=== PATIENT | female | born 1930 | race American Indian/Alaskan Native ===

== ENCOUNTER 2018-12-21 18:57 | Inpatient (IN) | payer MEDICAID ==
--- NOTE | 2018-12-21 20:27 | ED PDOC ---
HPI: General Adult Time Seen by Provider: 12/21/18 19:20 Chief Complaint (Nursing): Medical Clearance Chief Complaint (Provider): Medical Clearance History Per: Patient, Family History/Exam Limitations: clinical condition (short term memory in decline) Onset/Duration Of Symptoms: Hrs Additional Complaint(s): García CALL [id number] 88 year old female with history of DM, HTN, heart problem brought to ED because she was found wandering in the rain in [place]. Her chief complaint is that her body is wet but denies any other pain. Family visited patient in the middle of physical exam. They note that patient usually attends buddhism on Friday mornings at 7 AM by bus. She lives with her son in [place] but she may have missed a stop today and gotten lost. The family reports that this has never happened to the patient before although they admit her short term memory is progressively declining otherwise she has no other history of dementia. She is in good health recently. PMD: patient does not remember Past Medical History Reviewed: Historical Data, Nursing Documentation, Vital Signs Vital Signs: Last Vital Signs Temp 97.8 F 12/21/18 19:00 Pulse 95 H 12/21/18 19:00 Resp 16 12/21/18 19:00 BP 161/83 H 12/21/18 19:00 Pulse Ox 99 12/21/18 19:00 Primary Care Provider: FAMILY PROVIDER,NO - Medical History PMH: Diabetes, HTN - Surgical History Surgical History: No Surg Hx - Family History Family History: States: No Known Family Hx - Living Arrangements Living Arrangements: With Family (son) - Social History Current smoker - smoking cessation education provided: No Alcohol: None Drugs: Denies - Immunization History Hx Tetanus Toxoid Vaccination: No Hx Influenza Vaccination: No Hx Pneumococcal Vaccination: No - Home Medications Home Medications: Ambulatory Orders Medication Instructions Recorded Unobtainable 12/22/18 - Allergies Allergies/Adverse Reactions: Allergies Allergy/AdvReac Type Severity Reaction Status Date / Time No Known Allergies Allergy Verified 12/21/18 19:00 Review of Systems ROS Statement: Except As Marked, All Systems Reviewed And Found Negative Constitutional: Positive for: Other (wet body) Physical Exam - Reviewed Nursing Documentation Reviewed: Yes Vital Signs Reviewed: Yes - Physical Exam Appears: Positive for: No Acute Distress Head Exam: Positive for: ATRAUMATIC, NORMOCEPHALIC Skin: Positive for: Normal Color, Warm Eye Exam: Positive for: EOMI, Normal appearance, PERRL ENT: Positive for: Normal ENT Inspection Neck: Positive for: Normal, Supple Cardiovascular/Chest: Positive for: Regular Rate, Rhythm. Negative for: Murmur Respiratory: Positive for: Normal Breath Sounds. Negative for: Respiratory Distress Gastrointestinal/Abdominal: Positive for: Normal Exam, Soft. Negative for: Tenderness Back: Positive for: Normal Inspection. Negative for: L CVA Tenderness, R CVA Tenderness, Vertebral Tenderness Extremity: Positive for: Normal ROM. Negative for: Pedal Edema, Deformity Neurological/Psych: Positive for: Awake, Alert, Oriented (x2, not to time), calender wind up helper II-XII. Negative for: Facial Droop - Laboratory Results Result Diagrams: 12/21/18 20:48 12/21/18 20:48 - ECG O2 Sat by Pulse Oximetry: 99 (RA) Pulse Ox Interpretation: Normal Medical Decision Making Medical Decision Making: Time: 2009 Initial Impression: confusion/altered mental status Ddx: rule out hypothermia, electrolyte imbalance, infection, neurological process, psychiatric evaluation Family is aware of the plan Initial Plan: --CT Head --Labs (CMP, CBC) --Crisis Evaluation --Urinalysis 2020 Son arrived and is hesitant to do workup for patient since he is tired after a long day and would rather take the patient home. I explained the need for workup to rule out infection and any other electrolyte abnormality. he finally agreed. 2309 CT Head FINDINGS: BRAIN: No acute intraparenchymal hemorrhage. No mass lesion. No CT evidence for acute territorial infarct. No midline shift or extra-axial collections. There is moderate age-appropriate diffuse cerebral and cerebellar atrophy noted. There are bilateral confluent periventricular and subcortical white matter hypolucencies compatible with severe chronic microvascular disease. A small old lacunar infarction measuring 4.7 mm is seen in the left basal ganglia. VENTRICLES: No hydrocephalus. VASCULAR: Atherosclerotic vascular plaquing is noted within the carotid siphons bilaterally. ORBITS: The orbits are unremarkable. SINUSES AND MASTOIDS: Mucoperiosteal thickening is scattered within the ethmoid sinuses bilaterally and within the frontal sinuses bilaterally compatible with sinusitis. The remaining visualized paranasal sinuses and mastoid air cells are clear. BONES: No fracture. SOFT TISSUES: Unremarkable. IMPRESSION: 1. No acute intracranial abnormality. 2. Moderate age-appropriate diffuse cerebral and cerebellar atrophy. 3. Severe chronic microvascular disease. 4. Small old lacunar infarction in the left basal ganglia noted. 5. Atherosclerotic vascular plaquing seen within the carotid siphons bilaterally. 2340 Patient seen and evaluated by crisis team in the ER , state there is no psychiatric component to patient's presentation 0034 UA reviewed, no sign of UTI Creatinine appears to be indicative of worsening renal function Patient to be admitted due to worsening renal function, and leukocytosis Case discussed with Dr. Bhagat, who accepts patient for admission. Care transferred to Dr. Bhagat at this time. 0124 CXR FINDINGS: LUNGS: The lungs appear within normal limits. PLEURAL SPACES: No evidence of pleural effusion or pneumothorax. MEDIASTINUM: The heart is mildly enlarged. Tortuous ectatic atherosclerotic thoracic aorta is noted. BONES: No acute osseous abnormality. MISCELLANEOUS: No acute cardiopulmonary abnormality identified. IMPRESSION: 1. The heart is mildly enlarged. 2. Tortuous ectatic atherosclerotic thoracic aorta is noted. 3. No acute cardiopulmonary abnormality identified. pt stable for admission to the hospital. noted labs with worsening renal insufficiency as well as leukocytosis. pt will stay on a 1-1 for elopment risk. discussed the need for this with the son. he said he would come to the ER again but he never came. Scribe Attestation: Documented by Cameron Irvin acting as a scribe for Eva Israel MD. Provider Scribe Attestation: All medical record entries made by the Scribe were at my direction and personally dictated by me. I have reviewed the chart and agree that the record accurately reflects my personal performance of the history, physical exam, [facility] decision making, and the department course for this patient. I have also personally directed, reviewed, and agree with the discharge instructions and disposition. Disposition - Clinical Impression Clinical Impression: Altered mental status, Renal insufficiency - Patient ED Disposition Is Patient to be Admitted: Yes Counseled Patient/Family Regarding: Studies Performed, Diagnosis - Disposition Disposition Time: 22:00 Condition: STABLE
[2018-12-21 20:55] LABS: BASO % 0.2 % (0.0-2.0); EOS % 0.1 % (0.0-4.0); LYMPH # 0.6 K/uL (1.0-4.3); LYMPH % 3.8 % (20.0-40.0); MEAN CELL VOLUME 93.6 fl (81.0-99.0); MEAN CORPUSCULAR HEMOGLOBIN 30.3 pg (27.0-31.0); MEAN CORPUSCULAR HGB CONC 32.3 g/dL (33.0-37.0); MEAN PLATELET VOLUME 9.9 fl (7.2-11.7); MONO # 0.7 K/uL (0.0-0.8); MONO % 4.7 % (0.0-10.0); NEUT # 13.1 K/uL (1.8-7.0); NEUT % 91.2 % (50.0-75.0); PLATELET COUNT 123 K/uL (130-400); RBC 3.95 Mil/uL (3.80-5.20); RED CELL DISTRIBUTION WIDTH 14.6 % (11.5-14.5); WHITE BLOOD COUNT 14.4 K/uL (4.8-10.8)
[2018-12-21 21:05] LABS: ALB/GLOB RATIO 1.4 (1.0-2.1); ALBUMIN 4.5 g/dL (3.5-5.0); ALT/SGPT 24 U/L (9-52); AST/SGOT 62 U/L (14-36); BLOOD UREA NITROGEN 33 mg/dl (7-17); CALCIUM 9.8 mg/dL (8.4-10.2); GFR NON-AFRICAN AMERICAN 39
[2018-12-21 21:20] LABS: ACETAMINOPHEN < 10.0 ug/ml (10.0-30.0); SALICYLATE < 1.0 mg/dl
[2018-12-21] MEDS ORDERED: Sodium Chloride 0.9% 1,000 ML IV STA (21:45)
[2018-12-21 22:27] LABS: BANDS 1 % (0-2); LYMPHOCYTE 4 % (20-50); MONOCYTE 6 % (0-10); NEUTROPHIL 89 % (42-75); TOTAL CELLS COUNTED 100
[2018-12-21 22:28] LABS: PLATELET ESTIMATE DECREASED (NORMAL)
[2018-12-22 00:10] LABS: SQUAMOUS EPITHIAL < 1 /hpf (0-5); URINE BILIRUBIN NEGATIVE (NEGATIVE); URINE BLOOD MODERATE (NEGATIVE); URINE CLARITY CLEAR (Clear); URINE COLOR YELLOW (YELLOW); URINE GLUCOSE (UA) NEG (NEGATIVE); URINE LEUKOCYTE ESTERASE NEG Leu/uL (Negative); URINE PROTEIN 100 mg/dL (NEGATIVE); URINE UROBILINOGEN 0.2-1.0 mg/dL (0.2-1.0)
[2018-12-22 00:26] LABS: BARBITURATES, UR NEGATIVE (NEGATIVE); BENZODIAZEPINES, UR NEGATIVE (NEGATIVE); OPIATES, UR NEGATIVE (NEGATIVE); PHENCYCLIDINE, UR NEGATIVE (NEGATIVE)
[2018-12-22 04:05] VITALS: BMI 22.4
[2018-12-22] MEDS ORDERED: Pneumococcal 23-Valent Vaccine IM ONE (06:00)
[2018-12-22] MEDS: Sodium Chloride 0.9% 1,000 ML IV SCH ×3 (06:29→22:19)
--- NOTE | 2018-12-22 08:02 | CP.PCM.CON ---
History of Present Illness - History of Present Illness History of Present Illness: Psychiatry consult called for "history of wandering." Cre[employer] Unit Aide Tech [id number] used to communicate with the patient CC: "I'm fine." HPI: 88 yo female w/ h/o DM, HTN, CAD, found wandering in the rain in [place]. Patient is a poor historian and unable to explain why she is in the hospital. She is oriented to self and "hospital", does not know the date or which hospital. She denies acute depression/anxiety/AH/VH/paranoia/SI/HI. No acute psychiatric complaints. Impression: 88 yo female, likely has major neurocognitive disorder; no acute psychiatric complaints. -No psychiatric medications or admission indicated -Recommend outpatient neurology evaluation and treatment of neurocognitive impairment Past Patient History - Past Medical History & Family History Past Medical History?: Yes - Past Social History Alcohol: None Drugs: Denies - CARDIAC Hx Hypertension: Yes - PULMONARY Hx Tuberculosis: No - NEUROLOGICAL HX Cerebrovascular Accident: No Hx Seizures: No - HEENT Hx HEENT Problems: No - RENAL Hx Chronic Kidney Disease: No - ENDOCRINE/METABOLIC Hx Endocrine Disorders: No - HEMATOLOGICAL/ONCOLOGICAL Hx Cancer: No Hx Human Immunodeficiency Virus (HIV): No - INTEGUMENTARY Hx Dermatological Problems: No - MUSCULOSKELETAL/RHEUMATOLOGICAL Hx Musculoskeletal Disorders: Yes Hx Falls: Yes - GASTROINTESTINAL Hx Gastrointestinal Disorders: No - GENITOURINARY/GYNECOLOGICAL Hx Sexually Transmitted Disorders: No - PSYCHIATRIC Hx Psychophysiologic Disorder: No Hx Substance Use: No - SURGICAL HISTORY Hx Surgeries: No - ANESTHESIA Hx Anesthesia: No Hx Anesthesia Reactions: No Hx Malignant Hyperthermia: No Meds Allergies/Adverse Reactions: Allergies Allergy/AdvReac Type Severity Reaction Status Date / Time No Known Allergies Allergy Verified 12/21/18 19:00 - Medications Medications: Current Medications Acetaminophen (Tylenol 325mg Tab) 650 mg PO Q6 PRN PRN Reason: Pain, Mild (1-3) Sodium Chloride (Sodium Chloride 0.9%) 1,000 mls @ 100 mls/hr IV .Q10H RADHA Stop: 12/23/18 06:06 Last Admin: 12/22/18 06:29 Dose: 100 mls/hr Results - Vital Signs Recent Vital Signs: Last Vital Signs Temp 98.1 F 12/22/18 08:00 Pulse 75 12/22/18 08:00 Resp 18 12/22/18 08:00 BP 126/80 12/22/18 08:00 Pulse Ox 99 12/22/18 08:00 - Labs Result Diagrams: 12/22/18 10:40 12/22/18 10:40 Labs: Laboratory Results - last 24 hr 12/21/18 12/21/18 12/21/18 20:44 20:48 20:48 WBC RBC Hgb Hct MCV MCH MCHC RDW Plt Count MPV Neut % (Auto) Lymph % (Auto) [place] % (Auto) Eos % (Auto) Baso % (Auto) Neut # (Auto) Lymph # (Auto) [place] # (Auto) Eos # (Auto) Baso # (Auto) Neutrophils % (Manual) Band Neutrophils % Lymphocytes % (Manual) Monocytes % (Manual) Platelet Estimate RBC Morphology Sodium 139 Potassium 4.6 Chloride 102 Carbon Dioxide 23 Anion Gap 19 BUN 33 H Creatinine 1.3 H Est GFR ( Amer) 47 Est GFR (Non-Af Amer) 39 POC Glucose (mg/dL) 98 Random Glucose 101 Calcium 9.8 Total Bilirubin 0.9 AST 62 H ALT 24 Alkaline Phosphatase 74 Total Protein 7.8 Albumin 4.5 Globulin 3.3 Albumin/Globulin Ratio 1.4 Urine Color Urine Clarity Urine pH Ur Specific [place] Urine Protein Urine Glucose (UA) Urine Ketones Urine Blood Urine Nitrate Urine Bilirubin Urine Urobilinogen Ur Leukocyte Esterase Urine RBC (Auto) Urine Microscopic WBC Ur Squamous Epith Cells Salicylates < 1.0 Urine Opiates Screen Urine Methadone Screen Acetaminophen < 10.0 L Ur Barbiturates Screen Ur Phencyclidine Scrn Ur Amphetamines Screen U Benzodiazepines Scrn U Oth Cocaine Metabols U Cannabinoids Screen Alcohol, Quantitative < 10 12/21/18 12/21/18 12/21/18 20:48 23:55 23:55 WBC 14.4 H RBC 3.95 Hgb 12.0 Hct 37.0 MCV 93.6 MCH 30.3 MCHC 32.3 L RDW 14.6 H Plt Count 123 L MPV 9.9 Neut % (Auto) 91.2 H Lymph % (Auto) 3.8 L [place] % (Auto) 4.7 Eos % (Auto) 0.1 Baso % (Auto) 0.2 Neut # (Auto) 13.1 H Lymph # (Auto) 0.6 L [place] # (Auto) 0.7 Eos # (Auto) 0.0 Baso # (Auto) 0.0 Neutrophils % (Manual) 89 H Band Neutrophils % 1 Lymphocytes % (Manual) 4 L Monocytes % (Manual) 6 Platelet Estimate Decreased L RBC Morphology Normal Sodium Potassium Chloride Carbon Dioxide Anion Gap BUN Creatinine Est GFR ( Amer) Est GFR (Non-Af Amer) POC Glucose (mg/dL) Random Glucose Calcium Total Bilirubin AST ALT Alkaline Phosphatase Total Protein Albumin Globulin Albumin/Globulin Ratio Urine Color Yellow Urine Clarity Clear Urine pH 6.0 Ur Specific [place] 1.016 Urine Protein 100 Urine Glucose (UA) Neg Urine Ketones 20 Urine Blood Moderate Urine Nitrate Negative Urine Bilirubin Negative Urine Urobilinogen 0.2-1.0 Ur Leukocyte Esterase Neg Urine RBC (Auto) 1 Urine Microscopic WBC 1 Ur Squamous Epith Cells < 1 Salicylates Urine Opiates Screen Negative Urine Methadone Screen Negative Acetaminophen Ur Barbiturates Screen Negative Ur Phencyclidine Scrn Negative Ur Amphetamines Screen Negative U Benzodiazepines Scrn Negative U Oth Cocaine Metabols Negative U Cannabinoids Screen Negative Alcohol, Quantitative 12/22/18 05:31 WBC RBC Hgb Hct MCV MCH MCHC RDW Plt Count MPV Neut % (Auto) Lymph % (Auto) [place] % (Auto) Eos % (Auto) Baso % (Auto) Neut # (Auto) Lymph # (Auto) [place] # (Auto) Eos # (Auto) Baso # (Auto) Neutrophils % (Manual) Band Neutrophils % Lymphocytes % (Manual) Monocytes % (Manual) Platelet Estimate RBC Morphology Sodium Potassium Chloride Carbon Dioxide Anion Gap BUN Creatinine Est GFR ( Amer) Est GFR (Non-Af Amer) POC Glucose (mg/dL) 95 Random Glucose Calcium Total Bilirubin AST ALT Alkaline Phosphatase Total Protein Albumin Globulin Albumin/Globulin Ratio Urine Color Urine Clarity Urine pH Ur Specific [place] Urine Protein Urine Glucose (UA) Urine Ketones Urine Blood Urine Nitrate Urine Bilirubin Urine Urobilinogen Ur Leukocyte Esterase Urine RBC (Auto) Urine Microscopic WBC Ur Squamous Epith Cells Salicylates Urine Opiates Screen Urine Methadone Screen Acetaminophen Ur Barbiturates Screen Ur Phencyclidine Scrn Ur Amphetamines Screen U Benzodiazepines Scrn U Oth Cocaine Metabols U Cannabinoids Screen Alcohol, Quantitative
--- NOTE | 2018-12-22 08:19 | RAD ---
Date of service: 12/21/2018 HISTORY: elevated wbc COMPARISON: No prior. TECHNIQUE: 1 view obtained. FINDINGS: LUNGS: No active pulmonary disease. PLEURA: No significant pleural effusion identified, no pneumothorax apparent. CARDIOVASCULAR: Calcific atherosclerotic changes are seen related to the thoracic aorta. Prominent appearing cardiac silhouette. No pulmonary vascular congestion. OSSEOUS STRUCTURES: No significant abnormalities. VISUALIZED UPPER ABDOMEN: Normal. OTHER FINDINGS: None. IMPRESSION: Mild cardiomegaly not excluded. No infiltrates bilaterally or pulmonary vascular congestion.
--- NOTE | 2018-12-22 10:09 | CARD ---
APPROVED REPORT Date of service: 12/22/2018 EKG Measurement Heart [id number] <Conclusion> Normal sinus rhythm Voltage criteria for left ventricular hypertrophy Inferior infarct, age undetermined Abnormal ECG
--- NOTE | 2018-12-22 10:28 | US ---
Date of service: 12/22/2018 PROCEDURE: Ultrasound of the Kidneys HISTORY: worsening renal function COMPARISON: None available. TECHNIQUE: Sonogram of the kidneys. FINDINGS: RIGHT KIDNEY: Measures: 7.3 x 4.0 x 2.7 cm. No obstructing calculus, hydronephrosis, or renal cyst identified. Echogenic renal parenchyma. LEFT KIDNEY: Measures: 7.0 x 3.6 x 3.4 cm. No obstructing calculus, hydronephrosis, or renal cyst identified. Echogenic renal parenchyma. OTHER FINDINGS: None. IMPRESSION: Echogenic renal parenchyma may be seen in the setting of medical renal disease.
[2018-12-22 10:56] LABS: HEMOGLOBIN 10.7 g/dL (12.0-16.0); MEAN CELL VOLUME 93.9 fl (81.0-99.0); MEAN CORPUSCULAR HEMOGLOBIN 30.5 pg (27.0-31.0); MEAN CORPUSCULAR HGB CONC 32.5 g/dL (33.0-37.0); RBC 3.5 Mil/uL (3.80-5.20); RED CELL DISTRIBUTION WIDTH 14.5 % (11.5-14.5); WHITE BLOOD COUNT 11.4 K/uL (4.8-10.8)
[2018-12-22 11:18] LABS: ALB/GLOB RATIO 1.3 (1.0-2.1); ALBUMIN 3.8 g/dL (3.5-5.0); CALCIUM 8.8 mg/dL (8.4-10.2)
--- NOTE | 2018-12-22 12:16 | CT ---
Date of service: 12/21/2018 PROCEDURE: CT HEAD WITHOUT CONTRAST. HISTORY: Confusion and hypothermia COMPARISON: None available. TECHNIQUE: Axial computed tomography images were obtained through the head/brain without intravenous contrast. Supplemental Coronal and Sagittal projections created and reviewed. Radiation dose: Total exam DLP = 777.90 mGy-cm. This CT exam was performed using one or more of the following dose reduction techniques: Automated exposure control, adjustment of the mA and/or kV according to patient size, and/or use of iterative reconstruction technique. FINDINGS: HEMORRHAGE: No intracranial hemorrhage. BRAIN: No mass effect or edema. Cortical atrophy and chronic microvascular ischemic change. VENTRICLES: Unremarkable. No hydrocephalus. CALVARIUM: Unremarkable. PARANASAL SINUSES: Unremarkable as visualized. No significant inflammatory changes. MASTOID AIR CELLS: Unremarkable as visualized. No inflammatory changes. OTHER FINDINGS: None. IMPRESSION: No acute findings related to/ accounting for the clinical presentation. Concordant results (preliminary interpretation) provided by [facility]. Procedure Completed: 22:27. Preliminary Report: Interpreted and electronically signed: 23:10. Final Interpretation: 12:12.
--- NOTE | 2018-12-23 04:18 | HP ---
HISTORY OF PRESENT ILLNESS: This is an 88-year-old Indian female with history of type 2 diabetes mellitus, hypertension and heart problem was brought to emergency room because she was found wandering in the rain in the street. Her chief complaint is that her body was wet, but denies any other pain. Family visited the patient in the emergency room. They note that the patient usually attends latter-day on Friday morning at 7 o'clock by bus. The patient lives with her son in [place] and it was not clear if the patient missed a bus stop and got lost. The family reports that this never happened before and also, they admitted that her memory has been progressively declining lately. REVIEW OF SYSTEMS: Other review of systems is negative. ALLERGIES: NO KNOWN ALLERGY. MEDICATIONS: Unknown at this time. PAST MEDICAL HISTORY: As above. SOCIAL HISTORY: No history of smoking, ETOH or substance abuse. FAMILY HISTORY: Noncontributory. PHYSICAL EXAMINATION: GENERAL: The patient is in bed, not in any cardiopulmonary distress. VITAL SIGNS: Blood pressure 138/68, temperature 96.9, respiratory rate 20 and pulse 75. HEENT: Pupils equal and reactive to light. Normal-appearing mucosa of the conjunctivae, oropharynx and nasal membrane mucosa. NECK: Supple. No JVD. No carotid bruit. No lymph node. No thyromegaly. CHEST AND LUNGS: Bilateral symmetrical expansion. Good air exchange. No rales and no rhonchi. CARDIOPULMONARY: PMI not localized. S1 and S2. No additional sounds. ABDOMEN: Normoactive bowel sounds. No tenderness, no organomegaly, no masses. EXTREMITIES: No cyanosis, no clubbing, no edema. CENTRAL NERVOUS SYSTEM: Alert and awake, but disoriented to place and time. ASSESSMENT: 1. Dementia. 2. Hypertension. 3. Type 2 diabetes mellitus. 4. Dehydration. PLAN: Discussed with the family regarding further management. Social Service consult. We will resume the patient's home medications. We will do Accu-Cheks with insulin coverage as needed. Physical therapy. Luis F Bhagat MD
[2018-12-23] MEDS: Sodium Chloride 0.9% 1,000 ML IV SCH (05:25)
[2018-12-23 10:38] LABS: CALCIUM 8.6 mg/dL (8.4-10.2)
[2018-12-23 10:41] LABS: HEMOGLOBIN 10.2 g/dL (12.0-16.0); MEAN CELL VOLUME 94.4 fl (81.0-99.0); MEAN CORPUSCULAR HGB CONC 32.9 g/dL (33.0-37.0); RBC 3.27 Mil/uL (3.80-5.20); RED CELL DISTRIBUTION WIDTH 14.7 % (11.5-14.5); WHITE BLOOD COUNT 7.9 K/uL (4.8-10.8)
--- NOTE | 2018-12-23 14:41 | CT ---
Date of service: 12/23/2018 PROCEDURE: CT HEAD WITHOUT CONTRAST. HISTORY: Change in mental status COMPARISON: 01/07/2019 TECHNIQUE: Axial computed tomography images were obtained through the head/brain without intravenous contrast. Radiation dose: Total exam DLP = 784.53 mGy-cm. This CT exam was performed using one or more of the following dose reduction techniques: Automated exposure control, adjustment of the mA and/or kV according to patient size, and/or use of iterative reconstruction technique. FINDINGS: HEMORRHAGE: No intracranial hemorrhage. BRAIN: There is redemonstration of symmetric confluent low-attenuation in the periventricular white matter extending to the subcortical white matter. There is no mass, mass effect or abnormal extra-axial fluid collection. There is no territorial infarction. The midline sagittal structures are normal. VENTRICLES: There is moderate age-related global parenchymal volume loss and proportionate enlargement of the ventricles and cortical sulci. CALVARIUM: There is no calvarial fracture or extracranial soft tissue swelling. PARANASAL SINUSES: There is moderate mucosal thickening and fluid in the left anterior and posterior ethmoid air cells. MASTOID AIR CELLS: Mastoid air cells are underdeveloped. OTHER FINDINGS: None. IMPRESSION: 1. No acute intracranial abnormality. No significant interval change. 2. Redemonstration of extensive periventricular and subcortical white matter changes statistically most compatible with severe chronic microangiopathic changes. The other differential considerations include demyelination and dysmyelination. 3. Moderate age-related global parenchymal volume loss. 4. Fluid in the left anterior and posterior ethmoid air cells may represent acute sinusitis in the appropriate clinical setting.
--- NOTE | 2018-12-23 15:41 | CP.PCM.CON ---
History of Present Illness - History of Present Illness History of Present Illness: Neurology Consultation Note: Consult requested by Dr. Bhagat Mrs. Jovel is an 88-year-old woman with unknown past medical history, who was found wandering around in the rain a few days ago. She appeared to be disoriented and confused. She was evaluated by psychiatry as well and did not seem to have an acute psychiatric illness. PT evaluated the patient and noted bilateral lower extremity weakness. I ordered MRI of the thoracic and lumbar spine to rule out spinal pathology and there was no evidence of cord compression. Review of Systems - Review of Systems Systems not reviewed;Unavailable: Altered Mental Status Past Patient History - Past Medical History & Family History Past Medical History?: Yes - Past Social History Alcohol: None Drugs: Denies - CARDIAC Hx Hypertension: Yes - PULMONARY Hx Tuberculosis: No - NEUROLOGICAL HX Cerebrovascular Accident: No Hx Seizures: No - HEENT Hx HEENT Problems: No - RENAL Hx Chronic Kidney Disease: No - ENDOCRINE/METABOLIC Hx Endocrine Disorders: No - HEMATOLOGICAL/ONCOLOGICAL Hx Cancer: No Hx Human Immunodeficiency Virus (HIV): No - INTEGUMENTARY Hx Dermatological Problems: No - MUSCULOSKELETAL/RHEUMATOLOGICAL Hx Musculoskeletal Disorders: Yes Hx Falls: Yes - GASTROINTESTINAL Hx Gastrointestinal Disorders: No - GENITOURINARY/GYNECOLOGICAL Hx Sexually Transmitted Disorders: No - PSYCHIATRIC Hx Psychophysiologic Disorder: No Hx Substance Use: No - SURGICAL HISTORY Hx Surgeries: No - ANESTHESIA Hx Anesthesia: No Hx Anesthesia Reactions: No Hx Malignant Hyperthermia: No Meds Allergies/Adverse Reactions: Allergies Allergy/AdvReac Type Severity Reaction Status Date / Time No Known Allergies Allergy Verified 12/21/18 19:00 - Medications Medications: Current Medications Acetaminophen (Tylenol 325mg Tab) 650 mg PO Q6 PRN PRN Reason: Pain, Mild (1-3) Atorvastatin Calcium (Lipitor) 40 mg PO DAILY [facility] Cyproheptadine HCl (Periactin) 4 mg PO DAILY [facility] HCTZ/Losartan Potassium (Hyzaar 12.5 Mg-50 Mg) 1 tab PO DAILY [facility] Heparin Sodium (Porcine) (Heparin) 5,000 units SC Q12 [facility]; Protocol Metoprolol Tartrate (Lopressor) 12.5 mg PO DAILY [facility] Pantoprazole Sodium (Protonix Ec Tab) 40 mg PO DAILY [facility] Physical Exam - Constitutional Appears: Well - Head Exam Head Exam: ATRAUMATIC, NORMAL INSPECTION, NORMOCEPHALIC - Eye Exam Eye Exam: EOMI, Normal appearance, PERRL Pupil Exam: NORMAL ACCOMODATION, PERRL - ENT Exam ENT Exam: Mucous Membranes Moist, Normal Exam - Neck Exam Neck exam: Positive for: Normal Inspection - Respiratory Exam Respiratory Exam: Clear to Auscultation Bilateral, NORMAL BREATHING PATTERN - Cardiovascular Exam Cardiovascular Exam: REGULAR RHYTHM, +S1, +S2 - GI/Abdominal Exam GI & Abdominal Exam: Normal Bowel Sounds, Soft. absent: Tenderness - Extremities Exam Extremities exam: Positive for: normal inspection - Back Exam Back exam: NORMAL INSPECTION - Neurological Exam Neurological exam: Abnormal Gait, Alert, Altered, CN II-XII Intact, Reflexes Normal Additional comments: Generalized weakness more notable in both lower extremities - Psychiatric Exam Psychiatric exam: Normal Affect, Normal Mood - Skin Skin Exam: Dry, Intact, Normal Color, Warm Results - Vital Signs Recent Vital Signs: Last Vital Signs Temp 98.2 F 12/23/18 08:04 Pulse 59 L 12/23/18 08:04 Resp 18 12/23/18 08:04 BP 149/82 12/23/18 08:04 Pulse Ox 97 12/23/18 08:04 - Labs Result Diagrams: 12/23/18 10:00 12/23/18 10:00 Labs: Laboratory Results - last 24 hr 12/22/18 12/23/18 12/23/18 10:40 10:00 10:00 WBC 7.9 RBC 3.27 L Hgb 10.2 L Hct 30.9 L MCV 94.4 MCH 31.0 MCHC 32.9 L RDW 14.7 H Plt Count 95 L D Sodium 139 Potassium 3.8 Chloride 110 H Carbon Dioxide 24 Anion Gap 9 L BUN 24 H Creatinine 1.3 H Est GFR ( Amer) 47 Est GFR (Non-Af Amer) 39 Random Glucose 91 Calcium 8.6 RPR Nonreactive Assessment & Plan (1) Acute encephalopathy Assessment and Plan: The patient could be suffering from an exacerbation of baseline dementia due to either dehydration, renal insufficiency or possibly an infection (WBC was initially elevated). She has generalized weakness and pain in both knees (likely arthritis), and should undergo rehab. In addition I recommend the followin. MRI of the brain without contrast 2. Check serum vitamin D levels, TSH, T3/4, heavy metal screen 3. PT/OT eval and further treatment 4. Fluids with NS at 100 mL/hr Thank you for this consultation. Status: Acute
--- NOTE | 2018-12-23 15:53 | MRI ---
Date of service: 12/23/2018 PROCEDURE: MR LUMBAR SPINE WITHOUT CONTRAST HISTORY: bilateral knee tremors/weakness COMPARISON: None available. TECHNIQUE: Multiecho multiplanar sequences were performed through the lumbar spine without the use of intravenous contrast. FINDINGS: There is degenerative 4 mm anterior listhesis of L4 on L5 and degenerative 5 mm anterior listhesis of L5 on S1. There is exaggerated lumbar lordosis. There is no acute fracture or spondylolysis. There are degenerative endplate marrow changes at L2-3 and lesser extent L5-S1. Otherwise, bone marrow signal is within normal limits. The conus medullaris terminates at a normal level. There is multilevel indentation of the ventral thecal sac and multilevel spinal canal stenosis in the lumbar spine. There is multilevel disc degeneration with loss of T2 signal and reduced disc heights. Evaluation of individual disc levels demonstrate: T12-L1: Diffuse posterior disc bulge without spinal canal stenosis or neural foraminal narrowing. L1-2: Diffuse posterior disc bulge indents the ventral thecal sac without central spinal canal stenosis. Mild bilateral facet arthropathy contribute to moderate neural foraminal narrowing. L2-3: Diffuse posterior disc bulge indents the ventral thecal sac and in conjunction with mild ligamentum flavum infolding result in mild spinal canal stenosis. Moderate bilateral facet arthropathy contribute to severe neural foraminal narrowing. L3-4: Diffuse posterior disc bulge indents the ventral thecal sac and in conjunction with moderate ligamentum flavum infolding result in mild spinal canal stenosis. Also noted is superimposed right foraminal and far lateral disc protrusion which abuts the exiting right L3 nerve root. Moderate bilateral facet arthropathy contribute to severe right and moderate left neural foraminal narrowing. L4-5: Diffuse posterior disc bulge indents the ventral thecal sac and in conjunction with severe ligamentum flavum infolding result in severe spinal canal stenosis. Also noted is superimposed right foraminal and far lateral disc protrusion which likely impinges the exiting right L4 nerve root. Moderate bilateral facet arthropathy contribute to severe right and moderate left neural foraminal narrowing. L5-S1: Diffuse posterior disc bulge indents the ventral thecal sac and in conjunction with moderate ligamentum flavum infolding result in moderate spinal canal stenosis. Moderate right and severe left facet arthropathy contribute to moderate to severe right and severe left neural foraminal narrowing. OTHER FINDINGS: The paraspinous soft tissues are normal. There is a 1.3 x 1.0 cm cyst with presumable internal septation in the upper pole of the left kidney. IMPRESSION: 1. No acute fracture or spondylolysis. 2. Advanced multilevel degenerative disc disease, worse at L4-5 with a diffuse posterior disc bulge and superimposed right foraminal and far lateral disc protrusion which impinges the exiting right L4 nerve root, severe spinal canal stenosis, severe right and moderate left neural foraminal narrowing. 3. Additional comments as described above.
[2018-12-23] MEDS: Pantoprazole 40 mg EC Tab PO SCH (16:02)
--- NOTE | 2018-12-23 16:04 | MRI ---
Date of service: 12/23/2018 PROCEDURE: MR THORACIC SPINE WITHOUT CONTRAST HISTORY: bilateral knee tremors/weakness COMPARISON: None available. TECHNIQUE: Multiecho multiplanar sequences were performed through the thoracic spine without the use of intravenous contrast. FINDINGS: ALIGNMENT: There is normal alignment of the thoracic vertebral bodies. There is normal thoracic kyphosis. VERTEBRA: Vertebral body height are preserved. There is no acute fracture or bone destruction. MARROW: Bone marrow signal is within normal limits. PARASPINAL SOFT TISSUES: The paraspinous soft tissues are normal. CORD: The thoracic cord is normal in contour, caliber and has normal intrinsic signal. DISCS: There is multilevel disc degeneration with loss of T2 signal. The disc heights are maintained. There are mild posterior disc bulges at T10-11 T11-12 and T12-L1 and mild ligamentum flavum infolding at T 10 11 and T11-12 without central spinal canal stenosis. OTHER FINDINGS: None. IMPRESSION: 1. No acute fracture, spinal canal stenosis or cord compression. Normal appearance of the thoracic cord on noncontrast MRI examination. 2. Mild posterior disc bulges and ligamentum flavum infolding in the lower thoracic spine without central spinal canal stenosis or neural foraminal narrowing.
[2018-12-23] MEDS: HCTZ/Losartan 12.5/50 Tab PO SCH (16:26)
--- NOTE | 2018-12-23 22:25 | PQF ---
PROVIDER RESPONSE TEXT: Dehydration REVIEWER QUERY TEXT: Clarification of Clinical Diagnostic Findings Please clarify if there is an additional diagnosis(s) to go along with the following Chemistry labs: BUN:33->35->24 Creatinine:1.3->1.3->1.3 Est GFR( Amer):47->47->.47 Est GFR(Non Af Amer): 39->39->39 OR: Disagree OR: Unable to determine ER: brought to ED because she was found wandering in the rain in [place] - stable for admission to the hospital. noted labs with worsening renal insufficiency as well as leuk ocytosis.pt will stay on a 1-1 for elopment risk. Clin Imp: Altered mental status, Renal insufficiency Admission order: Admitting dx.: Worsening renal function, leukocytosis, dementia H and P: hx. type 2DM , HTN, and heart problem: to ER: found wandering in the rain in the street. H er chief complaint is that her body was wet, The family reports that this never happened before and also, they admitted that her memory has been progressively declining lately. Assessment; 1.Dementia.2.HTN3.Type 2 DM 4.Dehydration. -IVF's The patient's Clinical Indicators include: --- Query created by: Jill Devine on 12/23/2018 12:46 PM Electronically signed by: Luis F Bhagat MD 12/23/2018 10:21 PM
[2018-12-24 05:45] LABS: BASO % 0.3 % (0.0-2.0); EOS # 0.3 K/uL (0.0-0.7); EOS % 4.5 % (0.0-4.0); HEMOGLOBIN 10.5 g/dL (12.0-16.0); LYMPH # 2.1 K/uL (1.0-4.3); LYMPH % 29.3 % (20.0-40.0); MEAN CORPUSCULAR HEMOGLOBIN 30.5 pg (27.0-31.0); MEAN CORPUSCULAR HGB CONC 32.5 g/dL (33.0-37.0); MEAN PLATELET VOLUME 10.1 fl (7.2-11.7); MONO # 0.7 K/uL (0.0-0.8); MONO % 9.6 % (0.0-10.0); NEUT # 4.1 K/uL (1.8-7.0); NEUT % 56.3 % (50.0-75.0); RBC 3.44 Mil/uL (3.80-5.20); RED CELL DISTRIBUTION WIDTH 14.7 % (11.5-14.5); WHITE BLOOD COUNT 7.2 K/uL (4.8-10.8)
[2018-12-24 06:05] LABS: ALB/GLOB RATIO 1.2 (1.0-2.1); ALBUMIN 3.4 g/dL (3.5-5.0); CALCIUM 8.8 mg/dL (8.4-10.2)
[2018-12-24 07:06] LABS: URINE BILIRUBIN NEGATIVE (NEGATIVE); URINE BLOOD NEGATIVE (NEGATIVE); URINE CLARITY CLEAR (Clear); URINE COLOR STRAW (YELLOW); URINE GLUCOSE (UA) NEG (NEGATIVE); URINE LEUKOCYTE ESTERASE NEG Leu/uL (Negative); URINE PROTEIN NEGATIVE (NEGATIVE); URINE UROBILINOGEN 0.2-1.0 mg/dL (0.2-1.0)
[2018-12-24] MEDS: HCTZ/Losartan 12.5/50 Tab PO SCH (08:59)
[2018-12-24] MEDS: Pantoprazole 40 mg EC Tab PO SCH (09:00)
[2018-12-24] MEDS: Sodium Chloride 0.45% 1,000 ML IV SCH ×2 (09:21→21:45)
--- NOTE | 2018-12-24 10:57 | MRI ---
Date of service: 12/24/2018 PROCEDURE: MRI BRAIN WITHOUT CONTRAST HISTORY: AMS COMPARISON: Comparison is made to the previous CT dated 12/23/2018 TECHNIQUE: Multiplanar, multisequence MR images of the brain were obtained without intravenous contrast enhancement. FINDINGS: HEMORRHAGE: None DWI: There is 0.5 centimeter focus of diffusion restriction in the right frontal lobe consistent with acute/subacute lacunar infarct. BRAIN PARENCHYMA: No mass effect or edema. Moderate white matter changes noted likely represent chronic microvascular ischemic disease. Moderate atrophy is also noted. VENTRICLES: Dilated ventricles likely due to central atrophy. The possibility of mild hydrocephalus also should be considered. CRANIUM: Unremarkable. ORBITS: Grossly unremarkable. PARANASAL SINUSES/MASTOIDS: Vjrr-hz-cqzkzdwf sinuses mucosal disease noted. VASCULAR SYSTEM: Skull base flow voids intact. OTHER FINDINGS: None. IMPRESSION: 0.5 centimeter acute/subacute lacunar infarction at the right frontal lobe. Moderate atrophy and moderate to extensive white matter changes likely represent chronic microvascular ischemic disease. Wrpw-ck-fyqbmvsc sinuses mucosal disease.
[2018-12-24 12:30] LABS: T3 0.913 nmol/L (1.49-2.60)
[2018-12-24 12:48] LABS: HDL CHOLESTEROL 57 MG/DL (30-70); LDL CHOLESTEROL 88 mg/dL (0-129)
--- NOTE | 2018-12-24 16:06 | MRI ---
Date of service: 12/24/2018 PROCEDURE: MR Angiography of the neck without contrast HISTORY: acute/subacute infarct; eval for lvo or stenosis COMPARISON: None available. TECHNIQUE: 3D [id number] angiography of the neck was performed. Rotating maximum intensity projection images of the cervical carotid and vertebral arteries were generated. The origins of the common carotid arteries were not visualized, which is a limitation inherent to the non-contrast time of flight technique. FINDINGS: RIGHT CAROTID ARTERIES: Common Carotid Artery: Normal. Carotid Bifurcation: Normal. Internal Carotid Artery:Normal. External Carotid Artery (proximal branches): Normal. LEFT CAROTID ARTERIES: Common Carotid Artery: Normal. Carotid Bifurcation: Normal. Internal Carotid Artery:Normal. External Carotid Artery (proximal branches): Normal. VERTEBRAL ARTERIES: Right Vertebral Artery: Normal. Left Vertebral Artery: Is dominant OTHER FINDINGS: None. IMPRESSION: No MRA evidence of significant stenosis in the visualize common and internal carotid arteries.
--- NOTE | 2018-12-24 16:07 | MRI ---
Date of service: 12/24/2018 PROCEDURE: Magnetic Resonance Angiography Brain HISTORY: acute/subacute infarct; eval for lvo or stenosis COMPARISON: None available. TECHNIQUE: 3D time of flight MR angiography of the intracranial arteries was performed. Rotating maximum intensity projection images were generated. FINDINGS: INTERNAL CAROTID ARTERIES: Diffuse irregularity noted likely due to atherosclerotic disease. The skull base, petrous, cavernous and supraclinoid segments are bilaterally widely patient. ANTERIOR CEREBRAL ARTERIES: Unremarkable. A1 and A2 segments are widely patent. Smaller distal branches unremarkable, as visualized. MIDDLE CEREBRAL ARTERIES: Diffuse irregularities suggestive of atherosclerotic disease M1 and M2 segments are widely patent. Perisylvian branches grossly symmetric. POSTERIOR CIRCULATION: Basilar Artery: Unremarkable. Distal Vertebral Arteries: Unremarkable. Posterior Cerebral Arteries: Unremarkable. Posterior Inferior Cerebellar Arteries: Unremarkable. ANEURYSM/ VASCULAR MALFORMATIONS: None. OTHER FINDINGS: None. IMPRESSION: Diffuse irregularity noted in the distal internal carotid and in the middle cerebral arteries suggestive of atherosclerotic disease. No evidence of critical stenosis or arterial occlusion. Volume loss and dilated ventricles.
--- NOTE | 2018-12-24 18:13 | CARD ---
APPROVED REPORT Date of service: 12/24/2018 EXAM: Two-dimensional and M-mode echocardiogram with Doppler and color Doppler. Other Information Quality : GoodRhythm : NSR INDICATION LV Function:SystolicDiastolic 2D DIMENSIONS IVSd1.44 (0.7-1.1cm)LVDd3.95 (3.9-5.9cm) LVOT Diameter1.69 (1.8-2.4cm)PWd1.04 (0.7-1.1cm) IVSs1.69 (0.8-1.2cm)LVDs2.23 (2.5-4.0cm) FS (%) 43.5 %PWs1.66 (0.8-1.2cm) M-Mode DIMENSIONS Left Atrium (MM)3.78 (2.5-4.0cm)IVSd1.11 (0.7-1.1cm) Aortic Root2.78 (2.2-3.7cm)LVDd4.14 (4.0-5.6cm) Aortic Cusp Exc.1.54 (1.5-2.0cm)PWd1.08 (0.7-1.1cm) IVSs1.85 cmFS (%) 48 % LVDs2.16 (2.0-3.8cm)PWs1.44 cm Aortic Valve AoV Peak Hdxprmly597.6cm/sAoV VTI29.5cmAO Peak GR.15mmHg LVOT Peak Hvdefovy179.3cm/sLVOT VTI15.70cmAO Mean GR.8mmHg AJ (VMAX)0.15yb5GRM (VTI)0.85cm2 Mitral Valve MV E Ohpcregb69.4cm/sMV DECEL [id number] A Itnkeefz80.4cm/s MV LCW73ktY/A ratio1.1MVA (PHT)3.85cm2 TDI Lateral E' Peak V5.46cm/sMedial E' Peak V5.62cm/sE/Lateral E'16.6 E/Medial E'16.1 Tricuspid Valve TR Peak Trdllgzq733qc/sTR Peak Gr.32mmHg LEFT VENTRICLE The left ventricle is normal size. There is mild concentric left ventricular hypertrophy. The left ventricular systolic function is normal. The estimated ejection fraction is 60-65% No regional wall motion abnormalities noted.. Transmitral Doppler flow pattern is Grade I-abnormal relaxation pattern. No left ventricle thrombus noted on this study. There is no ventricular septal defect visualized. There is no left ventricular aneurysm. There is no mass noted in the left ventricle. RIGHT VENTRICLE The right ventricle is normal size. There is normal right ventricular wall thickness. The right ventricular systolic function is normal. ATRIA The left atrium is mildly dilated. The right atrium size is normal. The interatrial septum is intact with no evidence for an atrial septal defect. AORTIC VALVE The aortic valve is normal in structure. No aortic regurgitation is present. There is no aortic valvular stenosis. There is no aortic valvular vegetation. MITRAL VALVE The mitral valve is normal in structure. There is no evidence of mitral valve prolapse. There is no mitral valve stenosis. There is mild mitral valve regurgitation noted. TRICUSPID VALVE The tricuspid valve is normal in structure. There is mild tricuspid valve regurgitation noted. RVSP is calculated at 38 mm Hg. There is no tricuspid valve prolapse or vegetation. There is no tricuspid valve stenosis. PULMONIC VALVE The pulmonary valve is normal in structure. There is no pulmonic valvular regurgitation. There is no pulmonic valvular stenosis. GREAT VESSELS The aortic root is normal in size. The ascending aorta is normal in size. The pulmonary artery is normal. The IVC is normal in size and collapses >50% with inspiration. PERICARDIAL EFFUSION There is no pericardial effusion. There is no pleural effusion. <Conclusion> There is mild concentric left ventricular hypertrophy. The estimated ejection fraction is 60-65% Global peak strain is -16/ within normal limits. Transmitral Doppler flow pattern is Grade I-abnormal relaxation pattern. The left atrium is mildly dilated. There is mild mitral valve regurgitation noted. There is mild tricuspid valve regurgitation noted. RVSP is calculated at 38 mm Hg.
[2018-12-25 08:08] VITALS: RESP 20
--- NOTE | 2018-12-25 08:38 | PN ---
DATE: 12/23/2018 SUBJECTIVE: I was called this morning by the nurse practitioner and also by the son because the patient was previous Et[employer] user and a former patient of mine for many years who was found lying in the street. The patient stated to me that she was in the bus going [place] [employer] when the pants busheler and the patient ended up in the street walking not knowing where she is and the patient was found by the police and brought to the hospital and the son immediately was alerted and immediately the son came to see the patient. As of today, alert, awake and oriented straight catheter. She has as she was lost and denied any fall, denies any dizziness, was unable to recognize the area where she was, and now the patient stated that she is somewhat little longer, but still does not have full strength. PHYSICAL EXAMINATION: VITAL SIGNS: Blood pressure is 152/79, pulse 75, respirations 20, temperature 98. NECK: Supple. No JVD. LUNGS: Clear. HEART: Regular rate and rhythm. Positive murmur. ABDOMEN: Soft, nontender. No palpable mass. EXTREMITIES: There is no edema. CENTRAL NERVOUS SYSTEM: The patient is alert and awake, but weak. LABORATORY DATA: Labs that were done has shown that WBC 14.4, hemoglobin 12, hematocrit 37, and platelets 123. Chemistry at that time was sodium 139, potassium 4.6, chloride 102, bicarb 22, BUN 33, creatinine 1.3, and glucose 106. Again BUN is 24, creatinine 1.3. CBC today showed a WBC 11.5, hemoglobin 12, hematocrit 30.5, and platelet 97. IMPRESSION: 1. Uncontrolled hypertension. 2. Acute renal failure, chronic kidney disease. 3. Diabetes. 4. Dehydration. 5. Dementia. 6. Arthritis. 7. Gait dysfunction. PLAN: So, the patient now is getting physical therapy and IV fluid was given the patient was not aware and the consult was done by Dr. Prosper Kline. The patient had shortness of breath but stat MRI , no acute or osteomyelitis, but at L4-L5. So, the plan is that he is going to continue the current treatment and also going to continue physical therapy and so rehab. The case was discussed with the son earlier . Blas Swanson MD
--- NOTE | 2018-12-25 08:42 | PN ---
DATE: 12/24/2018 SUBJECTIVE: Today, the patient was seen and evaluated. The patient is alert and awake, denies any dizziness. No chest pain. No palpitations. The patient claimed of feeling better, little stronger and denies constipation. PHYSICAL EXAMINATION: VITAL SIGNS: Has a blood pressure of 162/80, pulse 72, respirations 20, temperature 98.8. HEENT: The head is normocephalic, atraumatic. LUNGS: Clear. HEART: Regular rate and rhythm. No extra beat noted. ABDOMEN: Soft, nontender. EXTREMITIES: There is no edema, though there is some unsteady gait. NEUROLOGIC: The patient is alert, awake, and oriented x3. Denies any weakness at this time. LABORATORY DATA: WBC 7.2, hemoglobin 10.5, hematocrit 32.3, and platelet is 94. Chemistry: Sodium 139, potassium 3.8, chloride 109, bicarb 25, BUN 22, creatinine 1.3, and glucose is 92. The CK is 466 and the patient also had MRA of the brain that showed no MRA evidence of seizure and stenosis and visualized common and internal carotid arteries. Also, the patient has MRA of the head and that showed issue with irregularity noted on the distal internal carotid and in the middle cerebral artery suggestive of atherosclerotic disease. No evidence of critical stenosis or arterial occlusion, and the patient has MRI of the brain today that showed acute versus subacute lacunar infarction at the right frontal lobe. Moderate atrophy and moderate to extensive white matter changes likely represent chronic microvascular ischemic disease and the echocardiogram shows that there is mild concentric left ventricular hypertrophy. The estimated ejection fraction is 60 to 65%. Further plan is that we are going to continue the current treatment and send the patient to subacute rehab and also I am going to be away from tomorrow 12/25/2018 to 12/28/2018 in the morning and Dr. Frankie Henao is going to cover me. Blas Swanson MD
[2018-12-25] MEDS: HCTZ/Losartan 12.5/50 Tab PO SCH (09:45)
[2018-12-25] MEDS: Pantoprazole 40 mg EC Tab PO SCH (09:46)
[2018-12-25] MEDS ORDERED: Cholecalciferol 1,000 INTLU TAB PO SCH (10:30)
--- NOTE | 2018-12-25 12:31 | PCM.STROKE ---
Interval History Unable to obtain (state reason): unclear date and time of onset; poss on 12/21/18 - Treatment Antiplatelet: Acetylsalicylic acid (ASA), Plavix Statin: Atrovastatin - Education Written Stroke Education provided regarding: personal risk factors, stroke warning sign/symptoms, how to activate emergency medical services, need to fo llow up after discharge Hx Atrial Fibrillation: No Hx Atrial Flutter: No - Therapy Notes Physical therapy notes date reviewed: 12/25/18 Occupational therapy notes date reviewed: 12/25/18 I have reviewed care of the patient with: Dr. Kline NIHSS Stroke Scale - Date/Time Evaluation Performed Date Performed: 12/25/18 Time Performed: 12:33 When Was NIHSS Performed: Re-evaluation - How Severe is the Stroke Level of Consciousness: 0=Alert LOC to Questions: 0=Both comments correct LOC to commands: 0=Obeys both correctly Best Gaze: 0=Normal Visual: 0=No visual loss Facial: 0=Normal Motor Arm - Left: 0=No drift Motor Arm - Right: 0=No drift Motor Leg - Left: 0=No drift Motor Leg - Right: 0=No drift Limb Ataxia: 0=Absent Sensory: 0=Normal Best Language: 0=No aphasia Dysarthia: 0=Normal articulation Extinction & Inattention (Neglect): 0=Normal, no object Score: 0 Exam - Vital Sign Vital Signs: Temp Pulse Resp BP Pulse Ox 98.9 F 60 20 135/76 97 12/25/18 08:06 12/25/18 12:13 12/25/18 08:06 12/25/18 12:13 12/25/18 08:06 Constitutional: No distress, Normal appearing Ophthalmoscopic: absent: papilledema, hemorrhage Right Pupil: Reactive Left Pupil: Reactive Cardiovascular: Regular rate & rhythm Mental Status: Normal: Orientation, Attention, Language, Fund of Knowledge, Other (not oriented to time) Cranial Nerve: Normal: Visual Sparks, Extraocular movement intact, Facial Sensation, Facial Strength, Hearing, Palate/Tongue Movement, Shoulder Strength Motor: Tone Neuro motor strength exam: Left Upper Extremity: 4 (distal 4/5), Right Upper Extremity: 4 (distal 4/5), Left Lower Extremity: 3 (distal 3/5), Right Lower Extremity: 3 (distal 3/5) Sensation: Intact to pin DTR: Patellar Left: 1+, Patellar Right: 1+ Coordination: Finger/nose Gait: Other (not assessed; PT notes reviewed) Vascular Risk: Hypertension - Data reviewed Laboratory results: 12/24/18 05:37 12/24/18 05:37 Triglycerides 52 mg/DL (0-149) 12/24/18 11:35 Cholesterol 171 mg/dL (0-199) 12/24/18 11:35 LDL Cholesterol Direct 88 mg/dL (0-129) 12/24/18 11:35 HDL Cholesterol 57 MG/DL (30-70) 12/24/18 11:35 Hemoglobin A1c 6.0 % (4.2-6.5) 12/24/18 11:35 Assessment and Plan (1) Ischemic stroke Assessment & Plan: Imaging reviewed: -MRI Brain (12/24/18): 0.5 centimeter acute/subacute lacunar infarction at the right frontal lobe. Moderate atrophy and moderate to extensive white matter changes likely represent chronic microvascular ischemic disease. [id number] sinuses mucosal disease. -MRA Head (12/24/18): Diffuse irregularity noted in the distal internal carotid and in the middle cerebral arteries suggestive of atherosclerotic disease. No evidence of critical stenosis or arterial occlusion. Volume loss and dilated ventricles. -MRA Neck (12/24/18): No MRA evidence of significant stenosis in the visualize common and internal carotid arteries. -CT Head (12/23/18): 1. No acute intracranial abnormality. No significant interval change. 2. Redemonstration of extensive periventricular and subcortical white matter changes statistically most compatible with severe chronic microangiopathic changes. The other differential considerations include demyelination and dysmyelination. 3. Moderate age-related global parenchymal volume loss. 4. Fluid in the left anterior and posterior ethmoid air cells may represent acute sinusitis in the appropriate clinical setting. -Continue ASA, Plavix and Statin. -Continue rehab. -Continue to manage secondary stroke risk factors. -Follow up with Dr. Kline for stroke f/u in the office within 1 month of d/c from acute rehab. Mary Jordan, [place], [employer] d/w Dr. Kline Status: Acute
[2018-12-25 16:00] VITALS: BP 152/78; PULSE 68; TEMP 98.8; O2SAT 94
--- NOTE | 2019-01-01 14:29 | DS ---
This patient is an 88-year-old female who was admitted to [facility]. Actually, the patient was going to [employer]. On her way, the bus did not fail to stop and the patient was supposed to come out and the patient is not able to recognize the area where she was and after that, the patient was picked up by the police and brought to the emergency room, not because was confused but because the patient is knowing nothing in Portuguese, cannot ask for direction. In the emergency room, the patient was found to be cool and also was dehydrated. Also the patient has difficulty walking, and the patient was admitted. I will give her IV fluid and also physical therapy. At first, the patient was admitted to Dr. Bhagat, and after that, the patient was . The patient, a little later, has improved and needs acute physical therapy. Discharge evaluation was set and family agreed to send him for acute PT which I have done and discharged to acute rehab at [facility]. So we are going to continue to follow this patient. Blas Swanson MD
--- NOTE | 2019-01-05 08:45 | PN ---
DATE: 01/02/2019 SUBJECTIVE: Today, the patient is examined in the bedroom. The patient is sitting comfortably, offered no major complaint except for asking for daughter did not come to see her. No confusion and denied any headache or dizziness. PHYSICAL EXAMINATION: VITAL SIGNS: The patient has a blood pressure of 122/78, pulse 77, respirations 18, temperature 99.3. NECK: Supple. LUNGS: Clear. HEART: Regular rate and rhythm. ABDOMEN: Soft, nontender. No palpable mass. EXTREMITIES: There is no edema. NEURO: The patient has unsteady gait and the patient is alert, awake and oriented. The patient however is Creole-speaking only, so may have difficulty to understand the staff; however, the patient is fully aware, awake, alert and oriented and her anvik language which is Creole. PLAN: We are going to continue with her current medication. Case was discussed with the patient's nurse and Dr. Guevara's note is appreciated. We will continue the current medication. Blas Swanson MD
--- NOTE | 2019-01-06 12:40 | PQF ---
Blas Swanson MD PROVIDER RESPONSE TEXT: Chronic kidney disease Stage 2 REVIEWER QUERY TEXT: Kidney Disease, Chronic CKD Stage Chronic Kidney Disease (CKD) is documented in the Medical Record. Please specify the disease stage (includes probable or suspected) Such as: -- Chronic kidney disease Stage 1 -- Chronic kidney disease Stage 2 -- Chronic kidney disease Stage 3 -- Chronic kidney disease Stage 4 -- Chronic kidney disease Stage 5 -- Chronic kidney disease Stage 5, requiring dialysis -- End Stage Renal Disease -- Other, please specify 12/23 Attending progress note includes Acute Renal Failure, CKD BUN:33->35->24 Creatinine:1.3->1.3->1.3-.1.3 Est GFR( Amer):47->47->.47-.47 Est GFR(Non Af Amer): 39->39->39->39 IVF 200 ccs hr->100cs hr->80ccs hr->D/[place] Stages are defined by the National Kid[employer] as follows: CKD Stage I GFR >= 90 ml / min per 1.73 m2 and persistent albuminuria CKD Stage 2 GFR between 60 and 89 with persistent albuminuria CKD Stage 3 GFR between 30 and 59 CKD Stage 4 GFR between 15 and 29 CKD Stage 5 GFR between <15 or End Stage Renal Disease The patient's Clinical Indicators include: -- Query created by: Jill Devine on 12/25/2018 02:53 PM [facility]
== END 2018-12-25 16:26 | DRG 566 ==
LOC: H.ER 18:57 → H.ERHOLD 12-22 00:39 → H.MEDSURG1 12-22 03:09
PROVIDERS: ADMIT Specialist; ATTEND Specialist
PROC: 3E0234Z Introduction of Serum, Toxoid and Vaccine into Muscle, Percutaneous Approach (ICD-10-PCS; principal; 2018-12-22)
DX: E86.0 Dehydration (principal); N17.9 Acute kidney failure, unspecified; I63.81 Other cerebral infarction due to occlusion or stenosis of small artery; E11.22 Type 2 diabetes mellitus with diabetic chronic kidney disease; E11.51 Type 2 diabetes mellitus with diabetic peripheral angiopathy without gangrene; N18.2 Chronic kidney disease, stage 2 (mild); G93.49 Other encephalopathy; F01.50 Vascular dementia, unspecified severity, without behavioral disturbance, psychotic disturbance, mood disturbance, and anxiety; D72.829 Elevated white blood cell count, unspecified; I12.9 Hypertensive chronic kidney disease with stage 1 through stage 4 chronic kidney disease, or unspecified chronic kidney disease; I25.10 Atherosclerotic heart disease of native coronary artery without angina pectoris; M17.0 Bilateral primary osteoarthritis of knee; R26.9 Unspecified abnormalities of gait and mobility; Z23 Encounter for immunization; Z91.83 Wandering in diseases classified elsewhere

== ENCOUNTER 2018-12-25 12:24 | Inpatient (IN) | payer MEDICAID ==
--- NOTE | 2018-12-25 16:56 | PCM.CPAPS ---
History of Present Illness - History of Present Illness History of Present Illness: Dr Guevara PMR consultation on Marian Jovel, born 1930 who has been admitted to [facility] for acute inpatient rehabilitation following an admission with confusion and wandering around. Brain MRI showed acute/sub-acute right frontal lobe infarct. Stabilized and here to increase functional independence Review of Systems - EENT Ears: absent: Dizziness - Cardiovascular Cardiovascular: absent: Chest Pain - Respiratory Respiratory: absent: Dyspnea - Gastrointestinal Gastrointestinal: absent: Abdominal Pain - Musculoskeletal Musculoskeletal: absent: Arthralgias Past Patient History - Past Medical History & Family History Past Medical History?: Yes - Past Social History Smoking Status: Never Smoked Alcohol: None Drugs: Denies Home Situation {Lives}: With Family - CARDIAC Hx Hypertension: Yes - PULMONARY Hx Tuberculosis: No - NEUROLOGICAL HX Cerebrovascular Accident: No Hx Seizures: No - HEENT Hx HEENT Problems: No - RENAL Hx Chronic Kidney Disease: No - ENDOCRINE/METABOLIC Hx Diabetes Mellitus Type 2: Yes - HEMATOLOGICAL/ONCOLOGICAL Hx Cancer: No Hx Human Immunodeficiency Virus (HIV): No - INTEGUMENTARY Hx Dermatological Problems: No - MUSCULOSKELETAL/RHEUMATOLOGICAL Hx Musculoskeletal Disorders: Yes Hx Falls: Yes - GASTROINTESTINAL Hx Gastrointestinal Disorders: No - GENITOURINARY/GYNECOLOGICAL Hx Sexually Transmitted Disorders: No - PSYCHIATRIC Hx Psychophysiologic Disorder: No Hx Substance Use: No - SURGICAL HISTORY Hx Surgeries: No - ANESTHESIA Hx Anesthesia: No Hx Anesthesia Reactions: No Hx Malignant Hyperthermia: No Meds Allergies/Adverse Reactions: Allergies Allergy/AdvReac Type Severity Reaction Status Date / Time No Known Allergies Allergy Verified 12/21/18 19:00 - Medications Medications: Current Medications Heparin Sodium (Porcine) (Heparin) 5,000 units SC Q12 [facility]; Protocol Physical Exam - Constitutional Appears: Non-toxic, No Acute Distress - Head Exam Head Exam: ATRAUMATIC, NORMAL INSPECTION, NORMOCEPHALIC - Eye Exam Eye Exam: EOMI - ENT Exam ENT Exam: Mucous Membranes Moist - Respiratory Exam Respiratory Exam: NORMAL BREATHING PATTERN - Cardiovascular Exam Cardiovascular Exam: REGULAR RHYTHM - GI/Abdominal Exam GI & Abdominal Exam: absent: Distended - Extremities Exam Extremities exam: Negative for: calf tenderness, pedal edema - Neurological Exam Neurological exam: Alert - Psychiatric Exam Psychiatric exam: Normal Affect, Normal Mood - Skin Skin Exam: Warm Assessment & Plan - Assessment and Plan (Free Text) Assessment: PT/OT to continue to help increase functional independence Team conference for d/c planning Pain: controlled Vascular: no evidence of DVT GI: No evidence of constipation or diarrhea Patient is an excellent acute rehabilitation candidate and will have focused pain management, wound care, PT, OT and recreational therapy to help facilitate a safe and appropriate d/c plan She has fairly symmetrical strength and normal tone - Functional Status Prior to Admission: independent Current Status: reduced safety with ambulation and needs Assist on ADLs Impairment Code: 01.1
--- NOTE | 2018-12-25 17:42 | PCM.OPOC ---
Physiatry Overall Plan of Care - Overall Plan of Care Estimated Length of Stay in Weeks: 2 Rehab Impairment: Mobility, Gait, Cognition, Balance, Coordination Etiologic Diagnosis: Cerebrovascular Accident Rehab/Medical Prognosis: Fair - Anticipated Interventions Physical Therapy:: Yes Number of Hours: 1.5 Number of times per week: 6 Number of Week(s) Duration: 2 Occupational Therapy:: Yes Number of Hours: 1.5 Number of times per week: 6 Number of Week(s) Duration: 2 Speech Therapy:: Yes Number of Hours: 0.5 Number of times per week: 5 Number of Week(s) Duration: 2 Recreational Therapy:: Yes Number of Hours: 0.5 Number of times per week: 5 Number of Week(s) Duration: 2 - Therapy Goals Bed Mobility: Supervision Ambulation: Contact Guard Functional Positional Changes:: Supervision - Functional Status Prior to Admission: independent Current Status: needs assist in ADLs and ambulation - Functional Outcomes Functional Outcomes: to be determined - Discharge Plan Identification of Barriers to Discharge: Cognition Discharge Destination: Home
[2018-12-26 02:49] VITALS: BMI 22.4
[2018-12-26 07:20] LABS: BASO % 0.7 % (0.0-2.0); EOS # 0.4 K/uL (0.0-0.7); EOS % 7.4 % (0.0-4.0); HEMOGLOBIN 11.5 g/dL (12.0-16.0); LYMPH # 1.7 K/uL (1.0-4.3); LYMPH % 29.2 % (20.0-40.0); MEAN CELL VOLUME 93.1 fl (81.0-99.0); MEAN CORPUSCULAR HEMOGLOBIN 30.5 pg (27.0-31.0); MEAN CORPUSCULAR HGB CONC 32.8 g/dL (33.0-37.0); MONO # 0.6 K/uL (0.0-0.8); MONO % 9.6 % (0.0-10.0); NEUT # 3.1 K/uL (1.8-7.0); NEUT % 53.1 % (50.0-75.0); NRBC % 0.1 % (0.0-0.0); RBC 3.76 Mil/uL (3.80-5.20); RED CELL DISTRIBUTION WIDTH 14.7 % (11.5-14.5); WHITE BLOOD COUNT 5.9 K/uL (4.8-10.8)
[2018-12-26 08:10] LABS: ALB/GLOB RATIO 1.2 (1.0-2.1); ALBUMIN 3.5 g/dL (3.5-5.0); CALCIUM 9.2 mg/dL (8.4-10.2)
[2018-12-26] MEDS: HCTZ/Losartan 12.5/50 Tab PO SCH (08:51)
[2018-12-26] MEDS: Cholecalciferol 1,000 INTLU TAB PO SCH (08:52)
[2018-12-26] MEDS: Pantoprazole 40 mg EC Tab PO SCH (08:52)
[2018-12-26] MEDS ORDERED: Pantoprazole 40 mg EC Tab PO SCH (09:00)
--- NOTE | 2018-12-26 15:35 | CP.PCM.CON ---
History of Present Illness - History of Present Illness History of Present Illness: Neurology Consultation Note: Consult requested by Dr. Parks Mrs. Jovel is an 88-year-old woman with unknown past medical history, who was found wandering around in the rain a few days ago. She appeared to be disoriented and confused. She was evaluated by psychiatry as well and did not seem to have an acute psychiatric illness. PT evaluated the patient and noted bilateral lower extremity weakness. MRI of the lumbar spine showed severe canal stenosis with bilateral L4 nerve root impingement. MRI brain shows a small right frontal lobe infarct. She was started on aspirin, plavix, lipitor for secondary stroke prevention and transferred to acute rehab, where I was asked to follow the patient. Review of Systems - Review of Systems All systems: reviewed and no additional remarkable complaints except Past Patient History - Past Medical History & Family History Past Medical History?: Yes - Past Social History Smoking Status: Never Smoked - CARDIAC Hx Cardiac Disorders: No Hx Hypertension: Yes - PULMONARY Hx Tuberculosis: No - NEUROLOGICAL HX Cerebrovascular Accident: No - HEENT Hx HEENT Problems: No - RENAL Hx Chronic Kidney Disease: No - ENDOCRINE/METABOLIC Hx Diabetes Mellitus Type 2: Yes - HEMATOLOGICAL/ONCOLOGICAL Hx AIDS: No Hx Cancer: No Hx Human Immunodeficiency Virus (HIV): No - INTEGUMENTARY Hx Dermatological Problems: No - MUSCULOSKELETAL/RHEUMATOLOGICAL Hx Musculoskeletal Disorders: Yes Hx Falls: No - GASTROINTESTINAL Hx Gastrointestinal Disorders: No - GENITOURINARY/GYNECOLOGICAL Hx Sexually Transmitted Disorders: No - PSYCHIATRIC Hx Psychophysiologic Disorder: No Hx Substance Use: No - SURGICAL HISTORY Hx Surgeries: No - ANESTHESIA Hx Anesthesia: No Hx Anesthesia Reactions: No Hx Malignant Hyperthermia: No Meds Allergies/Adverse Reactions: Allergies Allergy/AdvReac Type Severity Reaction Status Date / Time No Known Allergies Allergy Verified 12/21/18 19:00 - Medications Medications: Current Medications Acetaminophen (Tylenol 325mg Tab) 650 mg PO Q6 PRN PRN Reason: for pain scale 4-10 Last Admin: 12/26/18 09:00 Dose: 650 mg Amlodipine Besylate (Norvasc) 5 mg PO DAILY [facility] Last Admin: 12/26/18 08:53 Dose: 5 mg Aspirin (Ecotrin) 81 mg PO DAILY [facility] Last Admin: 12/26/18 08:51 Dose: 81 mg Atorvastatin Calcium (Lipitor) 40 mg PO DAILY [facility] Last Admin: 12/26/18 08:52 Dose: 40 mg Cholecalciferol (Vitamin D) 1,000 intlu PO DAILY [facility] Last Admin: 12/26/18 08:52 Dose: 1,000 intlu Clopidogrel Bisulfate (Plavix) 75 mg PO DAILY [facility] Last Admin: 12/26/18 08:52 Dose: 75 mg Cyproheptadine HCl (Periactin) 4 mg PO DAILY [facility] Last Admin: 12/26/18 08:54 Dose: 4 mg HCTZ/Losartan Potassium (Hyzaar 12.5 Mg-50 Mg) 1 tab PO DAILY [facility] Last Admin: 12/26/18 08:51 Dose: 1 tab Heparin Sodium (Porcine) (Heparin) 5,000 units SC Q12 [facility]; Protocol Last Admin: 12/26/18 08:51 Dose: 5,000 units Metoprolol Tartrate (Lopressor) 12.5 mg PO DAILY [facility] Last Admin: 12/26/18 08:53 Dose: 12.5 mg Pantoprazole Sodium (Protonix Ec Tab) 40 mg PO DAILY [facility] Last Admin: 12/26/18 08:52 Dose: 40 mg Physical Exam - Constitutional Appears: Well - Head Exam Head Exam: ATRAUMATIC, NORMAL INSPECTION, NORMOCEPHALIC - Eye Exam Eye Exam: EOMI, Normal appearance, PERRL Pupil Exam: NORMAL ACCOMODATION, PERRL - ENT Exam ENT Exam: Mucous Membranes Moist, Normal Exam - Neck Exam Neck exam: Positive for: Normal Inspection - Respiratory Exam Respiratory Exam: Clear to Auscultation Bilateral, NORMAL BREATHING PATTERN - Cardiovascular Exam Cardiovascular Exam: REGULAR RHYTHM, +S1, +S2 - GI/Abdominal Exam GI & Abdominal Exam: Normal Bowel Sounds, Soft. absent: Tenderness - Extremities Exam Extremities exam: Positive for: normal inspection - Back Exam Back exam: NORMAL INSPECTION - Neurological Exam Neurological exam: Alert, CN II-XII Intact, Oriented x3, Reflexes Normal Additional comments: Generalized weakness - Psychiatric Exam Psychiatric exam: Normal Affect, Normal Mood - Skin Skin Exam: Dry, Intact, Normal Color, Warm Results - Vital Signs Recent Vital Signs: Last Vital Signs Temp 98.1 F 12/26/18 09:00 Pulse 69 12/26/18 12:59 Resp 20 12/26/18 08:00 BP 175/89 H 12/26/18 08:53 Pulse Ox 98 12/26/18 12:59 - Labs Result Diagrams: 12/26/18 05:30 12/26/18 05:30 Labs: Laboratory Results - last 24 hr 12/26/18 12/26/18 05:30 05:30 WBC 5.9 RBC 3.76 L Hgb 11.5 L Hct 35.0 MCV 93.1 MCH 30.5 MCHC 32.8 L RDW 14.7 H Plt Count 91 L MPV 11.0 Neut % (Auto) 53.1 Lymph % (Auto) 29.2 Kleberg % (Auto) 9.6 Eos % (Auto) 7.4 H Baso % (Auto) 0.7 Neut # (Auto) 3.1 Lymph # (Auto) 1.7 Kleberg # (Auto) 0.6 Eos # (Auto) 0.4 Baso # (Auto) 0.0 Sodium 140 Potassium 4.7 Chloride 106 Carbon Dioxide 27 Anion Gap 12 BUN 21 H Creatinine 1.3 H Est GFR ( Amer) 47 Est GFR (Non-Af Amer) 39 Random Glucose 83 Calcium 9.2 Total Bilirubin 0.4 AST 41 H D ALT 30 Alkaline Phosphatase 53 Total Protein 6.3 Albumin 3.5 Globulin 2.9 Albumin/Globulin Ratio 1.2 Assessment & Plan (1) Ischemic stroke Assessment and Plan: Continue aspirin and plavix for 21 days since starting, and then continue only Plavix 75 mg daily monotherapy. PT/OT per the primary team. Thank you for this consultation. Status: Acute
--- NOTE | 2018-12-27 03:53 | HP ---
HISTORY OF PRESENT ILLNESS: The patient is an 88-year-old female, who was admitted 5 days ago to [facility] because of declining memory. [place] was wandering [place] the [place] The neurological workup which included brain MRI revealed a 0.5-cm acute/subacute lacunar infarct at the right frontal lobe, moderate atrophy and moderate to extensive white matter changes, likely representing chronic microvascular ischemic disease, [id number] sinus mucosal disease. The patient was transferred yesterday to acute rehab. No reported chest pain, dizziness, or fall and no reported hypertension, rather the blood pressure is under control. MEDICATIONS: Aspirin 81 mg once a day, subcutaneous heparin 5000 units every 12 hours, Hyzaar one tablet once a day, Lipitor 40 mg once a day, Lopressor 12.5 mg once a day, Norvasc 5 mg once a day, Plavix 75 mg once a day. REVIEW OF SYSTEMS: No nausea, vomiting, no fever or chills and no dizziness. PAST MEDICAL HISTORY: Hypertension, recent stroke. PHYSICAL EXAMINATION: GENERAL: The patient is an elderly female who does not appear to be in any acute distress. VITAL SIGNS: Blood pressure 175/89, heart rate 66, temperature 98.1, respirations 20. HEENT: Normocephalic. CHEST: Clear. HEART: S1 and S2 regular. ABDOMEN: Soft. EXTREMITIES: No edema. LABORATORY DATA: Today's hemoglobin and hematocrit are 11.5 and 35. White count 5.9. Platelet count 91,000. The trend has been declining since the patient's admission. However, initial platelet count was 123,000. Today's SMA-7: Sodium 140, potassium 4.7, chloride 106, CO2 of 27, glucose 83, BUN 21, creatinine 1.3. RPR is negative. Neck MRA: No significant stenosis. Head MRA: Diffuse irregularities noted in the distal internal carotids and in the middle cerebral arteries suggestive of atherosclerotic disease. No evidence of critical stenosis. Thoracic spine MRI: No acute fracture, spinal canal stenosis, or cord compression. Lumbar spine MRI: No acute fracture or spondylosis. Advanced multilevel degenerative disk disease at L4-L5. Admitting EKG on 12/23/2018 revealed normal sinus rhythm with voltage criteria for LVH, inferior infarct of indeterminate age. Echocardiography study performed two days ago revealed mild concentric LVH with normal fraction and grade 1 abnormal relaxation pattern, mild mitral insufficiency and mild pulmonary hypertension. ASSESSMENT: 1. Status post acute cerebrovascular accident with evidence of 0.5 cm acute/subacute lacunar infarct in the right frontal lobe. 2. Uncontrolled hypertension. 3. Chronic renal insufficiency. 4. Mild thrombocytopenia. PLAN: Continue aspirin 81 mg once a day, subcutaneous heparin 5000 units every 12 hours, Hyzaar 12.5 mg/50 mg daily, Lipitor 40 mg once a day, Lopressor 12.5 mg daily, Norvasc 5 mg once a day, Plavix 75 mg once a day. Routine 12-lead EKG today and followup CBC in the morning. Frankie Henao MD
[2018-12-27 06:58] LABS: HEMOGLOBIN 11.3 g/dL (12.0-16.0); MEAN CELL VOLUME 93.1 fl (81.0-99.0); MEAN CORPUSCULAR HEMOGLOBIN 30.7 pg (27.0-31.0); MEAN CORPUSCULAR HGB CONC 32.9 g/dL (33.0-37.0); RBC 3.69 Mil/uL (3.80-5.20); RED CELL DISTRIBUTION WIDTH 14.5 % (11.5-14.5); WHITE BLOOD COUNT 5.3 K/uL (4.8-10.8)
[2018-12-27] MEDS: Cholecalciferol 1,000 INTLU TAB PO SCH (08:26)
[2018-12-27] MEDS: Pantoprazole 40 mg EC Tab PO SCH (08:28)
[2018-12-27] MEDS: HCTZ/Losartan 12.5/50 Tab PO SCH (11:00)
--- NOTE | 2018-12-27 21:39 | PN ---
DATE: 12/27/2018 SUBJECTIVE: The patient was interviewed via an boiler or engine operator who is a family member visiting her now. The patient denies any chest pain or headache. She feels weak. Has reasonable appetite. PHYSICAL EXAMINATION: VITAL SIGNS: Blood pressure 152/78, heart rate 62, temperature 97.7, respirations 20. HEENT: Normocephalic. CHEST: Clear. HEART: S1, S2, regular. EXTREMITIES: No edema. LABORATORY DATA: Today's hemoglobin and hematocrit 11.3 and 34.4. White count 5.3 and platelet count improved to 116,000. ASSESSMENT: 1. Status post acute/subacute cerebrovascular accident with a 0.5 cm lacunar infarct in the right frontal lobe. 2. Uncontrolled hypertension. 3. Improvement in thrombocytopenia. 4. Chronic renal insufficiency. PLAN: Continue aspirin 81 mg once a day, subcutaneous heparin 5000 units every 12 hours, Lipitor 40 mg once a day, Hyzaar one tablet once a day, Norvasc 5 mg once a day, Plavix 75 mg once a day. I will hold all blood pressure medications for systolic blood pressure below 140. Frankie Henao MD
[2018-12-28] MEDS: Pantoprazole 40 mg EC Tab PO SCH (08:33)
[2018-12-28] MEDS: HCTZ/Losartan 12.5/50 Tab PO SCH (08:33)
[2018-12-28] MEDS: Cholecalciferol 1,000 INTLU TAB PO SCH (08:34)
--- NOTE | 2018-12-28 11:47 | CARD ---
APPROVED REPORT Date of service: 12/26/2018 EKG Measurement Heart [id number] <Conclusion> Sinus bradycardia Inferior infarct, age undetermined Abnormal ECG
--- NOTE | 2018-12-28 17:11 | CP.PCM.PN ---
Subjective - Date & Time of Evaluation Date of Evaluation: 12/26/18 Time of Evaluation: 15:00 - Subjective Subjective: no acute complaints, smiling, friendly Objective - Vital Signs/Intake and Output Vital Signs (last 24 hours): Temp Pulse Resp BP Pulse Ox 98.1 F 70 19 132/68 99 12/28/18 10:00 12/28/18 12:38 12/28/18 10:00 12/28/18 12:38 12/28/18 10:00 - Medications Medications: Current Medications Acetaminophen (Tylenol 325mg Tab) 650 mg PO Q6 PRN PRN Reason: for pain scale 4-10 Last Admin: 12/26/18 09:00 Dose: 650 mg Amlodipine Besylate (Norvasc) 5 mg PO DAILY [facility] Last Admin: 12/28/18 08:32 Dose: 5 mg Aspirin (Ecotrin) 81 mg PO DAILY [facility] Last Admin: 12/28/18 08:34 Dose: 81 mg Atorvastatin Calcium (Lipitor) 40 mg PO DAILY [facility] Last Admin: 12/28/18 08:34 Dose: 40 mg Cholecalciferol (Vitamin D) 1,000 intlu PO DAILY [facility] Last Admin: 12/28/18 08:34 Dose: 1,000 intlu Clopidogrel Bisulfate (Plavix) 75 mg PO DAILY [facility] Last Admin: 12/28/18 08:33 Dose: 75 mg Cyproheptadine HCl (Periactin) 4 mg PO DAILY [facility] Last Admin: 12/28/18 08:33 Dose: 4 mg HCTZ/Losartan Potassium (Hyzaar 12.5 Mg-50 Mg) 1 tab PO DAILY [facility] Last Admin: 12/28/18 08:33 Dose: 1 tab Heparin Sodium (Porcine) (Heparin) 5,000 units SC Q12 [facility]; Protocol Last Admin: 12/28/18 08:33 Dose: 5,000 units Metoprolol Tartrate (Lopressor) 12.5 mg PO DAILY [facility] Last Admin: 12/28/18 12:38 Dose: Not Given Pantoprazole Sodium (Protonix Ec Tab) 40 mg PO DAILY [facility] Last Admin: 12/28/18 08:33 Dose: 40 mg - Labs Labs: 12/27/18 05:25 12/26/18 05:30 - Constitutional Appears: Well - Head Exam Head Exam: ATRAUMATIC, NORMAL INSPECTION, NORMOCEPHALIC - Eye Exam Eye Exam: EOMI, Normal appearance Pupil Exam: NORMAL ACCOMODATION, PERRL - ENT Exam ENT Exam: Mucous Membranes Moist, Normal Exam - Neck Exam Neck Exam: Normal Inspection - Respiratory Exam Respiratory Exam: Clear to Ausculation Bilateral, NORMAL BREATHING PATTERN - Cardiovascular Exam Cardiovascular Exam: REGULAR RHYTHM - GI/Abdominal Exam GI & Abdominal Exam: Normal Bowel Sounds - Rectal Exam Rectal Exam: NORMAL INSPECTION - Exam External exam: NORMAL EXTERNAL EXAM - Extremities Exam Extremities Exam: Full ROM, Normal Capillary Refill - Back Exam Back Exam: NORMAL INSPECTION - Neurological Exam Neurological Exam: Alert - Psychiatric Exam Psychiatric exam: Normal Affect - Skin Skin Exam: Dry, Normal Color Assessment and Plan (1) Ischemic stroke Assessment & Plan: plan for physical, occupational, speech and rec therapy program, covering for Dr Guevara ( patient admitted form [address] [place] [address]) Status: Acute (2) Renal insufficiency Status: Acute
[2018-12-29] MEDS: Cholecalciferol 1,000 INTLU TAB PO SCH (08:53)
[2018-12-29] MEDS: HCTZ/Losartan 12.5/50 Tab PO SCH (08:54)
[2018-12-29] MEDS: Pantoprazole 40 mg EC Tab PO SCH (08:54)
--- NOTE | 2018-12-29 13:16 | PCM.PSYTMC ---
Acute Rehab Team Conference - - Vital Signs: Vital Signs (Last 8 Hours): Vital Signs 12/29/18 12/29/18 12/29/18 08:30 08:53 11:19 Temperature 97.8 F 97.8 F Pulse Rate 64 64 Respiratory 20 18 Rate Blood Pressure 149/60 149/60 149/60 O2 Sat by Pulse 100 Oximetry 12/29/18 11:45 Temperature Pulse Rate 63 Respiratory Rate Blood Pressure 153/74 H O2 Sat by Pulse Oximetry Pain: 0 - Precautions: Precautions: Fall Prevention, Aspiration - Medications/Other Issues: Comment: forgetfull - Consults: Comment: Dr Guevara,DR Kline - Bladder Management: Bladder Pattern: Normal Voiding Method: Toilet Bladder Management: Supervision - Transfers: Transfers: Supervision - ADL's: ADL's: Contact Guard - Pain Management: Other Intervention:: on tylenol for pain - Patient/Family Teaching: Other Intervention:: safety,fall medication teachings post cva care - Goals/Time Frame: Comment: as per multidiciplinary plan of care - Provider: Registered Nurse:: Radha Gibson Physical Therapy - Bed Mobility Bed Mobility: Supervision, Verbal Cues, Contact Guard Comment: cues to initiate and for sequencing - Transfers Wheelchair to Mat: Supervision, Verbal Cues, Contact Guard Sit to Stand: Supervision, Verbal Cues, Contact Guard Comment: no device - Ambulation Distance (ft.): 125 Assistive Devices: Rolling Walker Orthoses: n/a Comment: 125 feet x 6 reps on level surface, no device with manual support from therapist on R side. -narrow base of support with reduced reciprocal arm swing; patient with downward gaze. -incidents of B buckling at random times but appears to be when patient is fatigued and wants to sit down as opposed to a strength deficit - Stair Negotiation Stairs: Level of Assistance: Minimal Assistance Number of Stairs: 6 Handrails: Bilateral Stairs: Assistive Devices: Left Handrail, Right Handrail Comment: 6 4inch steps with B rails with reciprocal pattern with min A to mod A at times as patient has decreased motivation to negotiate steps and at times requires assistance for stability at the knees to prevent buckling - Standing Balance Static Stand: Contact Guard Assist Comment: no device - Pain Pain (assessed during therapy session): 0 Comment: denies pain - Insight/Carryover Insight/Carryover: Poor - Patient/Family Education Comment: safety, therapy schedule, therapy goals, mobility, plan of care, use of call alvarez - Assessment/Plan Assessment: Ms. Jovel continues to require contact guard and incidental min A for all mobility. Patient has poor carry-over with prior educated techniques and impaired safety with mobility. Patient continues to have impaired orientation but is agreeable to participate in therapy as able. PT recommends continued skilled therapy services to focus on maximizing safety an independence with all mobility with emphasis on reduction of burden of care. PT recommends home discharge with 24 hour supervision for safety. Pt would be a good candidate for adult day care. - Goals Timeframe: 7 days Goals: -mod I with bed/mat mobility. -supervision with transfers. -supervision with gait x 150 feet without device. -CG to negotiate 1 flight of steps with single rail. -family training initiated - Provider Physical Therapist:: Joanie Zhu License Number:: [id number] Occupational Therapy - Arousal/Attention/Orientation Level of Consciousness: Awake, Alert, Forgetful, Disoriented Patient Orientation: Person - ADL/IADL Self Feeding: Supervision, Verbal Cues, Set-up Help Grooming: Verbal Cues, Set-up Help, Minimal Assistance Dressing-Upper Ext: Verbal Cues, Set-up Help, Minimal Assistance Dressing-Lower Ext: Verbal Cues, Set-up Help, Moderate Assistance - Sitting Balance Static Sitting: Independent without upper extremity support Dynamic Sitting: Reaches across midline, Reaches out of base of support, Reaches within base of support, Contact Guard Assist Comment: seated unsupported - Transfers Wheelchair to Bed Transfers: Verbal Cues, Set-up Help, Minimal Assistance Toilet Transfers: Verbal Cues, Set-up Help, Minimal Assistance Comment: commode over toilet - Wheelchair Management Level of Assistance: Not Applicable - Upper Extremity Status Right Upper Extremity Comment: AROM is WFLS Left Upper Extremity Comment: AROM is WFLS - Pain Pain (assessed during therapy session): 0 - Insight/Carryover Insight/Carryover: Fair - Patient/Family Education Comment: -initiated for adls,transfers and mobility training. -use of call alvarez. -endurance/strength training initiated. -functional standing balance/enduranec and safety. -further training needed to increase carryover - Assessment/Plan Assessment: Patient is a 88 year old Cypriot Creole R handed female with dx: Altered mental status. Precautions: cardiac, falls. Pt limited by impaired memory, orientation, impaired sitting/standing balance/tolerance, impaired safety, impaired endurance/overall strength--which all impact on self care, transfers/mobility and Iadls. Pt will continue skilled OT to further address functional impairments to maxmize function in adls, transfers/mobility. *Goal: 24 hour care/assistance 2' impaired/decrease cognition - Goals Timeframe: 8 days Comment: FEEDING: I/setup. GROOMING: I/setup. UPPER BODY DRESSING: S/setup. LOWER BODY DRESSING: min assist & verbal cues. BATHING: min assist and verbal cues seated intermittently. TOILETING: CS/CG and verbal cues setup. TRANSFERS: CS/Supervision and verbal cues bed, commode, w/c and shower chair/other surfaces - Provider Occupational Therapist:: Elaine Addison License Number: [id number] Speech Therapy - Consult Information Patient on Program: Yes Medical Diagnosis: CVA Treatment Diagnosis: severe cognitive deficits - Assessment Problem Solving Impairment: Moderate Memory Impairment: Severe - Plan Assessment: Marian Jovel presents with severe cognitive linguistic deficits characterized by impaired orientation, immediate, short-term, and long- term memory, problem solving, linguistic organization, reasoning, and insight. Pt would benefit from skilled speech tx for improved cognition and participation in functional living environment. Plan: Continue Speech/Language Therapy Frequency: 3-5 times per week Duration: 1 week Goals/Timeframe: Please see IE completed 12/28/18 for complete goals/POC Recommendations: Speech tx 3-5x/week - Provider Therapist: Emmie Torres License Number: [id number] Recreational Therapy - Participation Participation: Participates in Individual and/or Group Sessions - Attendance Attendance: 3-5 times per week - Activities Leisure Activities: music - Socialization Level of Socialization: Initiates/interacts freely with care givers and peer - Diversional Time Diversional Time: listening to music - Assessment Assessment/Plan: Pt was oriented to benefits and purpose of participating in recreation therapy sessions throughout stay on unit. Pt will benefit from participating in sessions to improve leisure awareness level, direction following, and overall arousal level. Pt requires max A with all leisure tasks 2' impaired direction following and processing deficits. Problems Currently Limiting Participation: forgetful, confused, decrease leisure awareness level, decrease activity tolerance level, max A-dependent with all leisure tasks Goals and Time Frame: Pt will tolerate 30 minutes of recreation therapy session requiring 50% of task rules to complete task by date of discharge. - Provider Therapist: Kathie Simmons Nutrition - Current Diet Current Diet/Supplement/Feedings: Heart healthy thin liquids - Appetite Percent Meal Consumed: 50-74% - Assessment/Goals/Time Frame Assessments/Goals/Time Frame: Pt at moderate nutritional risk. goals: 1: Consume >75% of meals. 2: Maintain wt within 2-3 lbs. of current wt. Follow-up due on 01/02/2019 - Provider Provider: Aminah Morales Case Management - Psychosocial Assessment Support Systems: Patient's son Emanuel is supportive and involved in care- [phone] Psychological Interventions/Needs: Patient is alert with forgetfulness Discharge Concerns: Patient will likely require 24 hour supervision at home secondary to severity of cognitive deficits and poor insight. Patient/Family Meeting: CM met with patient and rehab team via certified Cypriot Creole speaking customer support agent Intervention/Goal/Outcome: 1. GOAL: 24 supervision at home due to cognitive deficits. 2. PLAN: Home with VNS and 24 hour supervision vs LINDY pending progress and support. 3. DME needs. 4. caregiver training. 5. f/u appts. 6. continued stay auth, LAD: 12/31 - Discharge Plan Discharge Plan: Subacute care - Provider Provider: Pacheco Penn License Number: [id number] Rehabilitation Plan - Treatment Plan Treatment Plan: Physical Therapy, Occupational Therapy, Speech, Dietary, Patient/Family Education - Discharge Plan Estimated Date of Discharge: 01/10/19 Discharge to: Home
--- NOTE | 2018-12-29 13:33 | CP.PCM.PN ---
Subjective - Date & Time of Evaluation Date of Evaluation: 12/29/18 Time of Evaluation: 13:32 - Subjective Subjective: Patient is quite forgetful and will need supervision at home given her current condition able to ambulate but some safety issues and would not be safe alone continue current care. Objective - Vital Signs/Intake and Output Vital Signs (last 24 hours): Temp Pulse Resp BP Pulse Ox 97.8 F 63 18 153/74 H 100 12/29/18 11:19 12/29/18 11:45 12/29/18 11:12/29/18 11:45 12/29/18 08:30 - Medications Medications: Current Medications Acetaminophen (Tylenol 325mg Tab) 650 mg PO Q6 PRN PRN Reason: for pain scale 4-10 Last Admin: 12/26/18 09:00 Dose: 650 mg Amlodipine Besylate (Norvasc) 5 mg PO DAILY [facility] Last Admin: 12/29/18 08:53 Dose: 5 mg Aspirin (Ecotrin) 81 mg PO DAILY [facility] Last Admin: 12/29/18 08:54 Dose: 81 mg Atorvastatin Calcium (Lipitor) 40 mg PO DAILY [facility] Last Admin: 12/29/18 10:00 Dose: 40 mg Cholecalciferol (Vitamin D) 1,000 intlu PO DAILY [facility] Last Admin: 12/29/18 08:53 Dose: 1,000 intlu Clopidogrel Bisulfate (Plavix) 75 mg PO DAILY [facility] Last Admin: 12/29/18 08:54 Dose: 75 mg Cyproheptadine HCl (Periactin) 4 mg PO DAILY [facility] Last Admin: 12/29/18 08:54 Dose: 4 mg HCTZ/Losartan Potassium (Hyzaar 12.5 Mg-50 Mg) 1 tab PO DAILY [facility] Last Admin: 12/29/18 08:54 Dose: 1 tab Heparin Sodium (Porcine) (Heparin) 5,000 units SC Q12 [facility]; Protocol Last Admin: 12/29/18 08:53 Dose: 5,000 units Metoprolol Tartrate (Lopressor) 12.5 mg PO DAILY [facility] Last Admin: 12/29/18 11:45 Dose: 12.5 mg Pantoprazole Sodium (Protonix Ec Tab) 40 mg PO DAILY [facility] Last Admin: 12/29/18 08:54 Dose: 40 mg - Labs Labs: 12/27/18 05:25 12/26/18 05:30
[2018-12-30 07:04] LABS: HEMOGLOBIN 11.8 g/dL (12.0-16.0); MEAN CELL VOLUME 95.2 fl (81.0-99.0); MEAN CORPUSCULAR HEMOGLOBIN 30.2 pg (27.0-31.0); MEAN CORPUSCULAR HGB CONC 31.7 g/dL (33.0-37.0); RBC 3.92 Mil/uL (3.80-5.20); RED CELL DISTRIBUTION WIDTH 15.1 % (11.5-14.5); WHITE BLOOD COUNT 8.2 K/uL (4.8-10.8)
[2018-12-30 07:16] LABS: CALCIUM 9.4 mg/dL (8.4-10.2)
[2018-12-30] MEDS: HCTZ/Losartan 12.5/50 Tab PO SCH (09:07)
[2018-12-30] MEDS: Cholecalciferol 1,000 INTLU TAB PO SCH (09:09)
[2018-12-30] MEDS: Pantoprazole 40 mg EC Tab PO SCH (09:09)
--- NOTE | 2018-12-31 01:08 | PN ---
DATE: 12/30/2018 SUBJECTIVE: The patient was seen earlier this morning. The patient was sitting on the chair close to the nursing station. The patient was fully alert and awake and able to describe the event when she gets less because she had missed bus station. The patient to come out. The patient denies any shortness of breath or chest pain but admits to have some difficulty walking. Even though the patient claimed that she feels that she is able to walk better; however, the patient stated that she was told not to get up without assistance. PHYSICAL EXAMINATION: VITAL SIGNS: Today, blood pressure 161/66 and 124/69, pulse 67, respirations 20, temperature 97.9. NECK: Supple. LUNGS: Clear. HEART: Regular rate and rhythm. Positive murmur. ABDOMEN: Soft, nontender. No palpable mass. EXTREMITIES: There is no edema. The patient had some difficulty with balance. LABORATORY DATA: The patient had blood tests done today. WBC 8.2, hemoglobin 11.8, hematocrit 37.3, and platelets 111. Chemistry: Sodium 138, potassium 4.6, chloride 103, bicarb 26, BUN 21, creatinine 1.4. ASSESSMENT AND PLAN: The plan is that we will continue physical therapy for fall prevention as the patient is walking. Also, Dr. Guevara's note is appreciated. The case was discussed with staff. Blas Swanson MD
[2018-12-31] MEDS: Cholecalciferol 1,000 INTLU TAB PO SCH (08:11)
[2018-12-31] MEDS: HCTZ/Losartan 12.5/50 Tab PO SCH (08:11)
[2018-12-31] MEDS: Pantoprazole 40 mg EC Tab PO SCH (08:12)
--- NOTE | 2018-12-31 23:19 | PN ---
DATE: 12/31/2018 SUBJECTIVE: Today, the patient was seen in the room, they were dressing this patient, sitting peacefully. The patient is fully alert, awake, and oriented and able to maintain full dialogue with complex reasoning. The patient admits that she is able to walk a little better, but however, still feels that she needs little more help and she feels the legs are still weak. The patient remembers that her family members came to see her a few minutes ago which was verified later on as true. PHYSICAL EXAMINATION: VITAL SIGNS: The patient has a blood pressure 129/66, pulse is 69, respirations 20, temperature 97.3. HEENT: Head is normocephalic. NECK: Supple. No JVD. LUNGS: Clear. HEART: Regular rate and rhythm. ABDOMEN: Soft, nontender. No palpable mass. EXTREMITIES: There is no edema. The patient has been having some weakness of the lower extremities. PLAN: The plan is that we are going to continue current treatment. Continue physical therapy. Also advised that she is having difficulty communicating due to the language barrier and advised to talk with an machine repair person for clear speaking. The patient language but clear. The case was discussed with the nurse on the floor and I have talked also with the son this morning. As per the patient's request to ask her when she will be able to be discharged to the son. Blas Swanson MD
[2019-01-01] MEDS: Pantoprazole 40 mg EC Tab PO SCH (08:22)
[2019-01-01] MEDS: HCTZ/Losartan 12.5/50 Tab PO SCH (08:23)
[2019-01-01] MEDS: Cholecalciferol 1,000 INTLU TAB PO SCH (09:14)
--- NOTE | 2019-01-01 11:26 | CP.PCM.PN ---
Subjective - Date & Time of Evaluation Date of Evaluation: 01/01/19 Time of Evaluation: 11:26 - Subjective Subjective: Patient seen in PT, ambulating nicely with CS/CG for balance and safety she cannot ambulate alone continue current care. Objective - Vital Signs/Intake and Output Vital Signs (last 24 hours): Temp Pulse Resp BP Pulse Ox 97.0 F L 60 19 143/80 98 01/01/19 08:35 01/01/19 09:14 01/01/19 08:35 01/01/19 09:14 01/01/19 08:35 - Medications Medications: Current Medications Acetaminophen (Tylenol 325mg Tab) 650 mg PO Q6 PRN PRN Reason: for pain scale 4-10 Last Admin: 12/30/18 09:13 Dose: 650 mg Amlodipine Besylate (Norvasc) 5 mg PO DAILY [facility] Last Admin: 01/01/19 09:14 Dose: 5 mg Aspirin (Ecotrin) 81 mg PO DAILY [facility] Last Admin: 01/01/19 08:22 Dose: 81 mg Atorvastatin Calcium (Lipitor) 40 mg PO DAILY [facility] Last Admin: 01/01/19 08:23 Dose: 40 mg Cholecalciferol (Vitamin D) 1,000 intlu PO DAILY [facility] Last Admin: 01/01/19 09:14 Dose: 1,000 intlu Clopidogrel Bisulfate (Plavix) 75 mg PO DAILY [facility] Last Admin: 01/01/19 08:23 Dose: 75 mg Cyproheptadine HCl (Periactin) 4 mg PO DAILY [facility] Last Admin: 01/01/19 09:15 Dose: 4 mg HCTZ/Losartan Potassium (Hyzaar 12.5 Mg-50 Mg) 1 tab PO DAILY [facility] Last Admin: 01/01/19 08:23 Dose: 1 tab Heparin Sodium (Porcine) (Heparin) 5,000 units SC Q12 [facility]; Protocol Last Admin: 01/01/19 08:22 Dose: 5,000 units Metoprolol Tartrate (Lopressor) 12.5 mg PO DAILY [facility] Last Admin: 01/01/19 08:23 Dose: 12.5 mg Pantoprazole Sodium (Protonix Ec Tab) 40 mg PO DAILY [facility] Last Admin: 01/01/19 08:22 Dose: 40 mg - Labs Labs: 12/30/18 06:55 12/30/18 06:55
--- NOTE | 2019-01-02 02:23 | PN ---
DATE: 01/01/2019 SUBJECTIVE: The patient was seen earlier this morning. The patient was sitting on a chair and was in the rehab, assisted by the physical therapist. The patient is fully alert and awake. Did not have any shortness of breath, any pain, any dizziness, or any palpitation. PHYSICAL EXAMINATION: VITAL SIGNS: The patient has a blood pressure of 143/80, pulse is 60, respirations 19, and temperature 97 degrees Fahrenheit. NECK: Supple. LUNGS: Clear. HEART: Regular rate and rhythm. No extra systole noted. ABDOMEN: Soft and nontender. EXTREMITIES: There is no edema. NEUROLOGIC: There is unsteady gait, some tenderness and some pain to the knees. PLAN: We are going to continue the physical therapy and the case was discussed with the case aide. The patient is due for discharge on 01/10/2019. In the meantime, I have to mention that the patient is fully alert and awake and does not understand Guyanese or Bulgarian, but is very fluent in creole and needs assistance of a creole-speaking person, so that the patient may be able to discuss her condition and her problems. Blas Swanson MD
[2019-01-02 07:07] LABS: HEMOGLOBIN 11.5 g/dL (12.0-16.0); MEAN CELL VOLUME 93.7 fl (81.0-99.0); MEAN CORPUSCULAR HEMOGLOBIN 30.4 pg (27.0-31.0); MEAN CORPUSCULAR HGB CONC 32.5 g/dL (33.0-37.0); RBC 3.77 Mil/uL (3.80-5.20); RED CELL DISTRIBUTION WIDTH 14.8 % (11.5-14.5)
[2019-01-02 07:22] LABS: CALCIUM 9.3 mg/dL (8.4-10.2)
[2019-01-02] MEDS: Pantoprazole 40 mg EC Tab PO SCH (08:36)
[2019-01-02] MEDS: Cholecalciferol 1,000 INTLU TAB PO SCH (08:36)
[2019-01-02] MEDS: HCTZ/Losartan 12.5/50 Tab PO SCH (08:37)
--- NOTE | 2019-01-02 09:22 | CP.PCM.PN ---
Subjective - Date & Time of Evaluation Date of Evaluation: 01/02/19 Time of Evaluation: 09:21 - Subjective Subjective: Marian Jovel, born 1930 who has been admitted to [facility] for acute inpatient rehabilitation following an admission with confusion and wandering around. Brain MRI showed acute/sub-acute right frontal lobe infarct. She has been doing very well and is motivated Objective - Vital Signs/Intake and Output Vital Signs (last 24 hours): Temp Pulse Resp BP Pulse Ox 97.3 F L 77 18 133/78 99 01/02/19 07:40 01/02/19 08:37 01/02/19 07:40 01/02/19 08:37 01/02/19 07:40 - Medications Medications: Current Medications Acetaminophen (Tylenol 325mg Tab) 650 mg PO Q6 PRN PRN Reason: for pain scale 4-10 Last Admin: 12/30/18 09:13 Dose: 650 mg Amlodipine Besylate (Norvasc) 5 mg PO DAILY [facility] Last Admin: 01/02/19 08:37 Dose: 5 mg Aspirin (Ecotrin) 81 mg PO DAILY [facility] Last Admin: 01/02/19 08:36 Dose: 81 mg Atorvastatin Calcium (Lipitor) 40 mg PO DAILY [facility] Last Admin: 01/02/19 08:37 Dose: 40 mg Cholecalciferol (Vitamin D) 1,000 intlu PO DAILY [facility] Last Admin: 01/02/19 08:36 Dose: 1,000 intlu Clopidogrel Bisulfate (Plavix) 75 mg PO DAILY [facility] Last Admin: 01/02/19 08:37 Dose: 75 mg Cyproheptadine HCl (Periactin) 4 mg PO DAILY [facility] Last Admin: 01/02/19 08:38 Dose: 4 mg HCTZ/Losartan Potassium (Hyzaar 12.5 Mg-50 Mg) 1 tab PO DAILY [facility] Last Admin: 01/02/19 08:37 Dose: 1 tab Heparin Sodium (Porcine) (Heparin) 5,000 units SC Q12 [facility]; Protocol Last Admin: 01/02/19 08:39 Dose: 5,000 units Metoprolol Tartrate (Lopressor) 12.5 mg PO DAILY [facility] Last Admin: 01/02/19 08:37 Dose: 12.5 mg Pantoprazole Sodium (Protonix Ec Tab) 40 mg PO DAILY [facility] Last Admin: 05/25/19 08:36 Dose: 40 mg - Labs Labs: 01/02/19 05:35 01/02/19 05:35 - Constitutional Appears: Non-toxic, No Acute Distress - Head Exam Head Exam: ATRAUMATIC, NORMAL INSPECTION, NORMOCEPHALIC - Eye Exam Eye Exam: EOMI - ENT Exam ENT Exam: Mucous Membranes Moist - Respiratory Exam Respiratory Exam: NORMAL BREATHING PATTERN - Cardiovascular Exam Cardiovascular Exam: REGULAR RHYTHM - GI/Abdominal Exam GI & Abdominal Exam: Normal Bowel Sounds. absent: Distended - Extremities Exam Extremities Exam: absent: Calf Tenderness - Neurological Exam Neurological Exam: Alert, Oriented x3 - Psychiatric Exam Psychiatric exam: Normal Affect, Normal Mood - Skin Skin Exam: Warm Assessment and Plan - Assessment and Plan (Free Text) Assessment: 88 year old female after CVA in need of acute inpatient rehabilitation and making good gains. PT/OT to continue to help increase functional independence Team conference for d/c planning Pain: controlled Vascular: no evidence of DVT GI: No evidence of constipation or diarrhea
[2019-01-03] MEDS: Cholecalciferol 1,000 INTLU TAB PO SCH (09:15)
[2019-01-03] MEDS: Pantoprazole 40 mg EC Tab PO SCH (09:16)
[2019-01-03] MEDS: HCTZ/Losartan 12.5/50 Tab PO SCH (09:17)
[2019-01-04] MEDS: HCTZ/Losartan 12.5/50 Tab PO SCH (08:10)
[2019-01-04] MEDS: Cholecalciferol 1,000 INTLU TAB PO SCH (08:12)
[2019-01-04] MEDS: Pantoprazole 40 mg EC Tab PO SCH (08:13)
--- NOTE | 2019-01-04 19:03 | PN ---
DATE: 01/04/2019 SUBJECTIVE: The patient seen and examined in her room. The patient talking to visitors and volunteers and describing the ordeal when the bus failed to drop her at the station that she knows and the description was accurate and repeatedly accurate. The patient was feeling alert and awake and oriented. The patient denied any pain or any shortness of breath. No dizziness. No chest pain or palpitation. The patient had a good appetite and denied any constipation. However, the patient is still complaining of some heaviness of the lower extremities. PHYSICAL EXAMINATION: VITAL SIGNS: Blood pressure of 119/63, pulse 61, respirations is 18, temperature 98.7. NECK: Supple. No JVD. LUNGS: Clear. HEART: Regular rate and rhythm.. ABDOMEN: No rebound. EXTREMITIES: There is no edema. NEUROLOGICAL: Alert, awake and oriented. Only Creole speaking, but able to answer in full sentence and answer complex questions. PLAN: Continue with physical therapy. We will review the blood work as well as . Blas Swanson MD
[2019-01-05 06:29] LABS: BASO % 0.4 % (0.0-2.0); EOS # 0.4 K/uL (0.0-0.7); EOS % 5.5 % (0.0-4.0); HEMOGLOBIN 10.6 g/dL (12.0-16.0); LYMPH # 2.2 K/uL (1.0-4.3); LYMPH % 33.3 % (20.0-40.0); MEAN CELL VOLUME 92.4 fl (81.0-99.0); MEAN CORPUSCULAR HEMOGLOBIN 30.9 pg (27.0-31.0); MEAN CORPUSCULAR HGB CONC 33.4 g/dL (33.0-37.0); MEAN PLATELET VOLUME 10.6 fl (7.2-11.7); MONO # 0.6 K/uL (0.0-0.8); MONO % 8.8 % (0.0-10.0); NEUT # 3.4 K/uL (1.8-7.0); RBC 3.42 Mil/uL (3.80-5.20); RED CELL DISTRIBUTION WIDTH 14.4 % (11.5-14.5); WHITE BLOOD COUNT 6.6 K/uL (4.8-10.8)
[2019-01-05 06:42] LABS: ALB/GLOB RATIO 1.2 (1.0-2.1); ALBUMIN 3.7 g/dL (3.5-5.0); CALCIUM 9.4 mg/dL (8.4-10.2)
[2019-01-05] MEDS: Pantoprazole 40 mg EC Tab PO SCH (08:40)
[2019-01-05] MEDS: Cholecalciferol 1,000 INTLU TAB PO SCH (08:40)
[2019-01-05] MEDS: HCTZ/Losartan 12.5/50 Tab PO SCH (08:40)
--- NOTE | 2019-01-05 13:32 | PCM.PSYTMC ---
Acute Rehab Team Conference - - Vital Signs: Vital Signs (Last 8 Hours): Vital Signs 01/05/19 01/05/19 01/05/19 08:10 08:39 08:40 Temperature 97.1 F L Pulse Rate 60 60 60 Respiratory 19 Rate Blood Pressure 146/62 146/62 146/62 O2 Sat by Pulse 98 Oximetry 01/05/19 10:18 Temperature 97.1 F L Pulse Rate 60 Respiratory 19 Rate Blood Pressure 146/62 O2 Sat by Pulse Oximetry Pain: 98 - Precautions: Precautions: Fall Prevention - Medications/Other Issues: Comment: Still on Lanie Sys for safety - Consults: Comment: Dr. Kline - Skin: Incision Site: N/A - Toileting: Toileting: Minimal Assistance - Bladder Management: Bladder Pattern: Normal Voiding Method: Toilet Bladder Management: Minimal Assistance - Transfers: Transfers: Minimal Assistance - ADL's: ADL's: Minimal Assistance - Pain Management: Other Intervention:: Tylenol 650 mg p.o every 6 hrs for pain 4-6 - Patient/Family Teaching: Other Intervention:: Safety. S/S of Stroke. Medication indication and side effects. Pain Mgt. - Goals/Time Frame: Comment: Next Team Conference - Provider: Registered Nurse:: Anayeli Bowser Physical Therapy - Bed Mobility Bed Mobility: Supervision, Verbal Cues - Transfers Wheelchair to Mat: Supervision, Verbal Cues Sit to Stand: Supervision, Verbal Cues - Ambulation Distance (ft.): 200 Orthoses: n/a Comment: -gait on level surfaces x 200 feet with supervision. -patient has intermittent losses of balance which occur mainly when her attention is distracted; able to recover balance primarily with supervision with occasional CG. -patient reaches for door frames for support when entering/exiting through doorways. -slow gait pattern with narrow base of support, impaired flexion in swing and slightly reduced heel to toe pattern. -gait includes 90 degree and 180 degree turning - Stair Negotiation Stairs: Level of Assistance: Supervision, Verbal Cues, Contact Guard Stairs: Assistive Devices: Left Handrail, Right Handrail Comment: 1 flight 8 inch steps with L rail on ascent and R rail on descent. - CS/CG on ascent with reciprocal pattern (self-selected). -CS on descent with self-selected step to pattern leading with LLE. -uses forward flexion on ascent and intermittently reaches for L rail with RUE as well. -increased stability noted on steps. -ambulates to/from stairwell x 50 feet in each direction - Standing Balance Static Stand: Supervision Comment: no device - Pain Pain (assessed during therapy session): 0 Comment: denies pain - Insight/Carryover Insight/Carryover: Fair - Patient/Family Education Comment: therapy schedule, mobility, POC, use of call alvarez, stair negotiation, gait - Assessment/Plan Assessment: Ms. Jovel continues to make good progress in therapy. Patient continues to require cues for directional negotiation as well as intermittent instances of CG for safety with balance. Patient has improving tolerance to gait as she is able to ambulate increased distances with reduced rest breaks as well as able to negotiate steps with reduced external assistance. Patient has impaired carry-over with prior educated techniques and decreased insight into safety deficits. Patient is limited by cognitive status. PT continues to recommend skilled therapy services addressing safety, balance, mobility and care-taker training. PT recommends home discharge with 24 hour supervision and home services. Pt is a good candidate for adult day care. - Goals Timeframe: 7 days Goals: -mod I with bed/mat mobility. -mod I with transfers. -supervision with gait x 250 feet without device. -CS to negotiate 1 flight of steps with single rail. -family training completed for safe home discharge - Provider Physical Therapist:: Joanie Zhu License Number:: [id number] Occupational Therapy - Arousal/Attention/Orientation Level of Consciousness: Awake, Alert Patient Orientation: Person, Place, Time, Appropriate to Age, Appropriate to Situation, Disoriented - ADL/IADL Self Feeding: Set-up Help Grooming: Set-up Help Bathing-Upper Ext: Supervision, Verbal Cues, Set-up Help Bathing-Lower Ext: Verbal Cues, Set-up Help, Minimal Assistance Dressing-Upper Ext: Supervision, Verbal Cues, Set-up Help Dressing-Lower Ext: Supervision, Verbal Cues, Set-up Help, Contact Guard - Sitting Balance Static Sitting: Independent without upper extremity support Dynamic Sitting: Reaches across midline, Reaches out of base of support, Reaches within base of support, Requires supervision Comment: seated unsupported - Transfers Wheelchair to Bed Transfers: Supervision, Verbal Cues, Set-up Help, Contact Guard Toilet Transfers: Supervision, Verbal Cues, Set-up Help, Contact Guard Comment: CG to step in shower to bench - Wheelchair Management Level of Assistance: Not Applicable - Upper Extremity Status Right Upper Extremity Comment: AROM is WFLS Left Upper Extremity Comment: AROM is WFLS - Pain Pain (assessed during therapy session): 0 - Insight/Carryover Insight/Carryover: Fair - Patient/Family Education Comment: *USE VOYCE to COMMUNICATE in preferred language--ARABIC CREOLE*. - ONGOING for adls,transfers and mobility training using safety strategies. - endurance/strength/balance training ongoing. -functional standing balance/endurance and safety. -further training needed to increase carryover/overall I. -pt currently will need 24 hour care 2' cognitive and physical limitations - Assessment/Plan Assessment: Pt is a 88 year old FRECH CREOLE/ZAMBIAN R HANDED female with dx: CVA. Precautions: falls, cardiac. Pt continues to make steady progress in function in self care, transfers/mobility, but needs CG/CS overall to complete tasks safely. Pt limited by B/LUE and LLE strength/endurance, impaired standing balance/tolerance, impaired safety, impaired visual acuity, impaired memory/cognition--which all impact on overall function in self care, transfers/mobility. Pt will continue to benefit from skilled Occupational Therapy to further maximize overall function in daily living tasks, +caregiver ed, DME needs assessment for safe transition home with 24 hour care/assistance ---OR---- LINDY pending family/community support system. Pt's son educated on pt's overall progress and need for 2 hour care upon discharge. Pt's on seems to be in DENIAL about pt's function/ability to be home alone--further education needed to incresae understanding - Goals Timeframe: 8 days Comment: -GROOMING: I/setup; DS to stand at sink to complete simple grooming tasks. -UPPER BODY DRESSING: I/setup. -LOWER BODY DRESSING: CS/Supervision & verbal cues. -BATHING: CG/CS assist and verbal cues seated intermittently. - TOILETING: Distant S and verbal cues setup. TRANSFERS: Supervision/DS and verbal cues bed, commode, w/c and shower chair/other surfaces. -CAREGIVER to be I assisting/cueing pt for safe completion of self care, transfers/mobility, IADLS - Provider Occupational Therapist:: Elaine Addison License Number: [id number] Speech Therapy - Consult Information Patient on Program: Yes Medical Diagnosis: CVA Treatment Diagnosis: moderate cognitive deficits - Assessment Problem Solving Impairment: Moderate Memory Impairment: Moderate - Plan Assessment: Marian Jovel presents with moderate cognitive linguistic deficits characterized by impaired orientation, short-term memory, problem solving, linguistic organization, reasoning, and insight. Pt with good participation in tx tasks with use of Creole spanish interpreter/translator, though barriers to learning include cognitive deficits and verbal perseverations. She would benefit from continued speech tx for improved cognition and safety. Plan: Continue Speech/Language Therapy Frequency: 3-5 times per week Duration: 1 week Goals/Timeframe: Please see progress note dated 01/04/19 for updated goals/POC Recommendations: Continue speech tx 3-5x/week - Provider Therapist: Emmie Torres License Number: [id number] Recreational Therapy - Participation Participation: Participates in Individual and/or Group Sessions - Attendance Attendance: 3-5 times per week - Activities Leisure Activities: Cards and Games - Socialization Level of Socialization: Initiates/interacts with caregivers but not with peer, Requires 1:1 guidance to respond - Diversional Time Diversional Time: listening to Ziliko music - Assessment Assessment/Plan: Pt is agreeable to participate in 1:1 recreation therapy sessions throughout stay on unit. Pt has participated in modified vani card task, spot-it matching task, and 5 second rule task. Pt requires min-mod A with all leisure tasks 2' decrease direction following, decrease initiation, and decrease carryover of task rules. Pt demonstrated 50% accuracy of verbalizing the colors or numbers on the cards. Attempted to have pt color with coloring page; however, pt will color outline of objects on page instead of coloring within the object or lines. Pt receives translation services throughout sessions for interepretation. Pt's mood is stable-positive throughout all sessions. Pt will continue to benefit from participating in recreation therapy sessions throughout stay on unit. Problems Currently Limiting Participation: forgetful, confused, decrease leisure awareness level, decrease activity tolerance level, max A-dependent with all leisure tasks Goals and Time Frame: Pt will tolerate 30 minutes of recreation therapy session requiring 50% of task rules to complete task by date of discharge. - Provider Therapist: Kathie Simmons Nutrition - Current Diet Current Diet/Supplement/Feedings: 1) Heart Healthy Diet. 2) Ensure Plus 1 daily (350 kcal - Appetite Percent Meal Consumed: 50-74% - Comments Comments: No GI upset noted, Last BM 01/04 - Assessment/Goals/Time Frame Assessments/Goals/Time Frame: Goals: 1) Consume >75% of meals. 2) Maintain wt within 2-3 lbs. of current wt. Planned follow up: 01/08 - Provider Provider: Russell Burnette Case Management - Psychosocial Assessment Support Systems: Emanuel Hu (son) - [phone] Psychological Interventions/Needs: Patient is awake and alert with confusion and poor memory. Patient with cognitive impairments. Discharge Concerns: Patient's family works evenings and is finding it difficult to provide round the clock supervision. Recommendations and their importance for patient's safety were discussed at length with patient's son and daughter in law, as well as patient's daughter and grand daughter were called as well. Patient/Family Meeting: CM met with patient and rehab team. Intervention/Goal/Outcome: 1. Goal: home with VNS and 24hr supervision 2. refer patient to [facility] where patient's son's friend works and speaks patient's language- reguest [place] 3. f/u appts 4. order appropriate DME 5. caregiver training with son 6. continued emotional support - Discharge Plan Discharge Plan: Home with significant other/family - Provider Provider: Humaira Miles License Number: [id number] Rehabilitation Plan - Treatment Plan Treatment Plan: Physical Therapy, Occupational Therapy, Speech, Dietary, Patient/Family Education - Discharge Plan Estimated Date of Discharge: 01/10/19 Discharge to: Home
--- NOTE | 2019-01-06 08:52 | CP.PCM.PN ---
Subjective - Date & Time of Evaluation Date of Evaluation: 01/05/19 Time of Evaluation: 13:30 - Subjective Subjective: Patient seen in the room friendly and in good spirits no resp distress denies pain no cyanosis or jaundice doing better with ambulation and ADLs but still will need 24 hour supervision family is aware. Objective - Vital Signs/Intake and Output Vital Signs (last 24 hours): Temp Pulse Resp BP Pulse Ox 97.6 F 51 L 19 128/60 97 01/06/19 07:56 01/06/19 07:56 01/06/19 07:56 01/06/19 07:56 01/06/19 07:56 - Medications Medications: Current Medications Acetaminophen (Tylenol 325mg Tab) 650 mg PO Q6 PRN PRN Reason: for pain scale 4-10 Last Admin: 12/30/18 09:13 Dose: 650 mg Amlodipine Besylate (Norvasc) 5 mg PO DAILY [facility] Last Admin: 01/05/19 08:39 Dose: 5 mg Aspirin (Ecotrin) 81 mg PO DAILY [facility] Last Admin: 01/05/19 08:40 Dose: 81 mg Atorvastatin Calcium (Lipitor) 40 mg PO DAILY [facility] Last Admin: 01/05/19 08:39 Dose: 40 mg Cholecalciferol (Vitamin D) 1,000 intlu PO DAILY [facility] Last Admin: 01/05/19 08:40 Dose: 1,000 intlu Clopidogrel Bisulfate (Plavix) 75 mg PO DAILY [facility] Last Admin: 01/05/19 08:39 Dose: 75 mg Cyproheptadine HCl (Periactin) 4 mg PO DAILY [facility] Last Admin: 01/05/19 08:40 Dose: 4 mg HCTZ/Losartan Potassium (Hyzaar 12.5 Mg-50 Mg) 1 tab PO DAILY [facility] Last Admin: 01/05/19 08:40 Dose: 1 tab Heparin Sodium (Porcine) (Heparin) 5,000 units SC Q12 [facility]; Protocol Last Admin: 01/05/19 21:39 Dose: 5,000 units Metoprolol Tartrate (Lopressor) 12.5 mg PO DAILY [facility] Last Admin: 01/05/19 08:40 Dose: 12.5 mg Pantoprazole Sodium (Protonix Ec Tab) 40 mg PO DAILY [facility] Last Admin: 01/05/19 08:40 Dose: 40 mg - Labs Labs: 01/05/19 05:20 01/05/19 05:20
[2019-01-06] MEDS: Pantoprazole 40 mg EC Tab PO SCH (09:00)
[2019-01-06] MEDS: Cholecalciferol 1,000 INTLU TAB PO SCH (09:00)
[2019-01-06] MEDS: HCTZ/Losartan 12.5/50 Tab PO SCH (09:00)
--- NOTE | 2019-01-06 09:55 | PN ---
DATE: 01/05/2019 SUBJECTIVE: The patient was seen this morning and examined in her room. The patient was sitting on a chair. Denied any major complaint. Denied any shortness of breath, chest pain, or palpitation. The patient has been having good bowel movement, and the patient remembered her son and the who come to see her earlier this morning and only complaining of some discomfort to the lower extremities with some weakness. PHYSICAL EXAMINATION: VITAL SIGNS: The patient has blood pressure of 142/62, pulse 60, respirations 19, and temperature 99.1. NECK: Supple. No JVD. LUNGS: Clear. HEART: Regular rate and rhythm. ABDOMEN: Soft. Nontender. No palpable mass. EXTREMITIES: There is no edema. LABORATORY DATA: The patient has blood work that showed WBC is 6.6, hemoglobin 10.6, hematocrit 31.6, and platelet is 165. Sodium 138, potassium 4.7, chloride 104, bicarb is 26, BUN 27, creatinine 1.5, phosphorus 4.7, calcium 9.4. The patient was complaining of some decrease of vision. PLAN: We are going to continue physical therapy. Case was discussed with nurse and the progress note from was appreciated, and we are going to continue the physical therapy and continue the current medication. I advised the patient to drink more fluid, I mean water. The patient will have an appointment to see an commissary assistant upon discharge. Blas Swanson MD
--- NOTE | 2019-01-06 12:21 | CP.PCM.PN ---
Subjective - Date & Time of Evaluation Date of Evaluation: 01/06/19 Time of Evaluation: 12:19 - Subjective Subjective: Marian Jovel, born 1930 who has been admitted to [facility] for acute inpatient rehabilitation following an admission with confusion and wandering around. Brain MRI showed acute/sub-acute right frontal lobe infarct. Stabilized and her e to increase functional independence She has safety issues still and will need 24 hour care. She has no behavioral issues but is forgetful and has some safety limitations very pleasant Objective - Vital Signs/Intake and Output Vital Signs (last 24 hours): Temp Pulse Resp BP Pulse Ox 97.6 F 51 L 19 128/60 97 01/06/19 07:56 01/06/19 09:03 01/06/19 07:56 01/06/19 09:03 01/06/19 07:56 - Medications Medications: Current Medications Acetaminophen (Tylenol 325mg Tab) 650 mg PO Q6 PRN PRN Reason: for pain scale 4-10 Last Admin: 12/30/18 09:13 Dose: 650 mg Amlodipine Besylate (Norvasc) 5 mg PO DAILY [facility] Last Admin: 01/06/19 09:03 Dose: Not Given Aspirin (Ecotrin) 81 mg PO DAILY [facility] Last Admin: 01/06/19 09:00 Dose: 81 mg Atorvastatin Calcium (Lipitor) 40 mg PO DAILY [facility] Last Admin: 01/06/19 09:02 Dose: 40 mg Cholecalciferol (Vitamin D) 1,000 intlu PO DAILY [facility] Last Admin: 01/06/19 09:00 Dose: 1,000 intlu Clopidogrel Bisulfate (Plavix) 75 mg PO DAILY [facility] Last Admin: 01/06/19 09:00 Dose: 75 mg Cyproheptadine HCl (Periactin) 4 mg PO DAILY [facility] Last Admin: 01/06/19 09:00 Dose: 4 mg HCTZ/Losartan Potassium (Hyzaar 12.5 Mg-50 Mg) 1 tab PO DAILY [facility] Last Admin: 01/06/19 09:00 Dose: 1 tab Heparin Sodium (Porcine) (Heparin) 5,000 units SC Q12 [facility]; Protocol Last Admin: 01/06/19 09:02 Dose: 5,000 units Metoprolol Tartrate (Lopressor) 12.5 mg PO DAILY [facility] Last Admin: 01/06/19 09:00 Dose: Not Given Pantoprazole Sodium (Protonix Ec Tab) 40 mg PO DAILY [facility] Last Admin: 01/06/19 09:00 Dose: 40 mg - Labs Labs: 01/05/19 05:20 01/05/19 05:20 - Constitutional Appears: Non-toxic, No Acute Distress - Head Exam Head Exam: ATRAUMATIC, NORMAL INSPECTION, NORMOCEPHALIC - Eye Exam Eye Exam: EOMI - Respiratory Exam Respiratory Exam: NORMAL BREATHING PATTERN - GI/Abdominal Exam GI & Abdominal Exam: absent: Distended, Firm, Guarding - Extremities Exam Extremities Exam: absent: Calf Tenderness, Pedal Edema - Neurological Exam Neurological Exam: Alert Neuro motor strength exam: Left Upper Extremity: 5, Right Upper Extremity: 5, Left Lower Extremity: 5, Right Lower Extremity: 5 - Psychiatric Exam Psychiatric exam: Normal Affect, Normal Mood Assessment and Plan - Assessment and Plan (Free Text) Assessment: PT/OT to continue to help increase functional independence Team conference for d/c planning Pain: controlled Vascular: no evidence of DVT GI: No evidence of constipation or diarrhea Patient continues to be an excellent acute rehabilitation candidate and will have continued focused speech, PT, OT and recreational therapy to help facilitate a safe and appropriate d/c plan
--- NOTE | 2019-01-06 22:12 | PN ---
DATE: 01/06/2019 SUBJECTIVE: The patient was seen earlier today sitting on the chair. Offered no new complaint. The patient denied any shortness of breath or chest pain. No palpitations. No constipation or diarrhea, and the patient admits to some weakness in the lower extremities, however, admits walking better now. PHYSICAL EXAMINATION: VITAL SIGNS: The patient has blood pressure of 128/60, pulse is 51, respirations 19. NECK: Supple. LUNGS: Clear. HEART: Regular rate and rhythm. Positive murmur. ABDOMEN: Soft. Nontender. No palpable mass. EXTREMITIES: There is no edema. NEUROLOGIC: The patient is able to lift the lower extremity, 5/5 strength, and the patient is alert and awake, oriented, but she is unable to answer questions appropriately. ASSESSMENT AND PLAN: So, the progress note from Dr. Guevara is appreciated. The two progress notes from 01/06/2019 are appreciated. I agree that the patient continue with the acute rehab, and discharge planning is in progress. Case was discussed with Vickie, the nurse. Blas Swanson MD
[2019-01-07] MEDS: HCTZ/Losartan 12.5/50 Tab PO SCH (08:39)
[2019-01-07] MEDS: Pantoprazole 40 mg EC Tab PO SCH (08:43)
[2019-01-07] MEDS: Cholecalciferol 1,000 INTLU TAB PO SCH (08:43)
--- NOTE | 2019-01-07 13:18 | CP.PCM.PN ---
Subjective - Date & Time of Evaluation Date of Evaluation: 01/07/19 Time of Evaluation: 12:45 - Subjective Subjective: Neuro Follow-Up Note: Mrs. Jovel was evaluated this afternoon at bedside. Seen with Dr. Swanson. Pt states she is doing well with rehab, has a good appetite. She still c/o feeling a heaviness in her legs. Otherwise, ROS in unremarkable. Objective - Vital Signs/Intake and Output Vital Signs (last 24 hours): Temp Pulse Resp BP Pulse Ox 97.2 F L 57 L 19 150/72 99 01/07/19 08:27 01/07/19 08:42 01/07/19 08:27 01/07/19 08:42 01/07/19 08:27 - Medications Medications: Current Medications Acetaminophen (Tylenol 325mg Tab) 650 mg PO Q6 PRN PRN Reason: for pain scale 4-10 Last Admin: 12/30/18 09:13 Dose: 650 mg Amlodipine Besylate (Norvasc) 5 mg PO DAILY [facility] Last Admin: 01/07/19 08:42 Dose: 5 mg Aspirin (Ecotrin) 81 mg PO DAILY [facility] Last Admin: 01/07/19 08:38 Dose: 81 mg Atorvastatin Calcium (Lipitor) 40 mg PO DAILY [facility] Last Admin: 01/07/19 08:39 Dose: 40 mg Cholecalciferol (Vitamin D) 1,000 intlu PO DAILY [facility] Last Admin: 01/07/19 08:43 Dose: 1,000 intlu Clopidogrel Bisulfate (Plavix) 75 mg PO DAILY [facility] Last Admin: 01/07/19 08:43 Dose: 75 mg Cyproheptadine HCl (Periactin) 4 mg PO DAILY [facility] Last Admin: 01/07/19 08:43 Dose: 4 mg HCTZ/Losartan Potassium (Hyzaar 12.5 Mg-50 Mg) 1 tab PO DAILY [facility] Last Admin: 01/07/19 08:39 Dose: 1 tab Heparin Sodium (Porcine) (Heparin) 5,000 units SC Q12 [facility]; Protocol Last Admin: 01/07/19 08:38 Dose: 5,000 units Metoprolol Tartrate (Lopressor) 12.5 mg PO DAILY [facility] Last Admin: 01/07/19 08:39 Dose: Not Given Pantoprazole Sodium (Protonix Ec Tab) 40 mg PO DAILY [facility] Last Admin: 01/07/19 08:43 Dose: 40 mg - Labs Labs: 01/05/19 05:20 01/05/19 05:20 - Constitutional Appears: Well, Non-toxic, No Acute Distress - Head Exam Head Exam: ATRAUMATIC, NORMAL INSPECTION, NORMOCEPHALIC - Eye Exam Eye Exam: EOMI, Normal appearance - ENT Exam ENT Exam: Mucous Membranes Moist - Neck Exam Neck Exam: Full ROM - Respiratory Exam Respiratory Exam: NORMAL BREATHING PATTERN - Extremities Exam Extremities Exam: Full ROM Additional comments: Moves all extremities with some generalized weakness to BLE - Back Exam Back Exam: Full ROM - Neurological Exam Neurological Exam: Alert, Awake, CN II-XII Intact, Reflexes Normal Neuro motor strength exam: Left Upper Extremity: 5, Right Upper Extremity: 5, Left Lower Extremity: 3, Right Lower Extremity: 3 Additional comments: Moves all extremities though has some generalized weakness to BLE No sensory deficits. No tremors and abnormalities. - Psychiatric Exam Psychiatric exam: Normal Affect, Normal Mood - Skin Skin Exam: Normal Color Assessment and Plan (1) Ischemic stroke Assessment & Plan: -Continue aspirin and plavix for 21 days since starting, and then continue only Plavix 75 mg daily monotherapy. -Continue PT/OT. -Notify neuro of any acute changes in pt's condition. Mary Jordan, [place], TREE WORKER d/w Dr. Kline Status: Acute
--- NOTE | 2019-01-08 01:41 | PN ---
DATE: 01/07/2019 SUBJECTIVE: The patient was seen today in her room, sitting in a chair, complaining of significantly hungry, waiting for her food. PHYSICAL EXAMINATION: GENERAL: The patient is fully alert and awake. VITAL SIGNS: Blood pressure of 150/72, pulse 67, respirations 18, temperature 97.2. NECK: Supple. LUNGS: Clear. HEART: Regular rate and rhythm. ABDOMEN: Soft and nontender. EXTREMITIES: There is no edema. NEUROLOGIC: The patient has some weakness to the lower extremities and some unsteady gait, but improving from the time the patient came to the rehab. PLAN: We are going to continue the physical therapy and also prevent fall and continue medical treatment. So basically, the patient was seen and evaluated. Discussed with Mary Jordan, the new nurse practitioner. Blas Swanson MD
[2019-01-08 06:51] LABS: HEMOGLOBIN 11.7 g/dL (12.0-16.0); MEAN CELL VOLUME 93.4 fl (81.0-99.0); MEAN CORPUSCULAR HEMOGLOBIN 30.7 pg (27.0-31.0); MEAN CORPUSCULAR HGB CONC 32.8 g/dL (33.0-37.0); RBC 3.81 Mil/uL (3.80-5.20); RED CELL DISTRIBUTION WIDTH 14.7 % (11.5-14.5); WHITE BLOOD COUNT 6.7 K/uL (4.8-10.8)
[2019-01-08 07:05] LABS: CALCIUM 9.5 mg/dL (8.4-10.2)
[2019-01-08] MEDS: HCTZ/Losartan 12.5/50 Tab PO SCH (08:15)
[2019-01-08] MEDS: Cholecalciferol 1,000 INTLU TAB PO SCH (08:15)
[2019-01-08] MEDS: Pantoprazole 40 mg EC Tab PO SCH (08:16)
--- NOTE | 2019-01-09 00:29 | PN ---
DATE: 01/08/2019 SUBJECTIVE: The patient was seen early this morning, pleasant, sitting on a chair, eating her meal 100%. The patient was admitted, feeling less weakness of the lower extremities. No constipation, no dizziness. No palpitation or chest pain. PHYSICAL EXAMINATION: VITAL SIGNS: Blood pressure earlier was 140/85, pulse 84, respirations 20, temperature 97.9. NECK: Supple. LUNGS: Clear. HEART: Regular rate and rhythm. ABDOMEN: Soft. Positive bowel sounds. Nontender. EXTREMITIES: There is no edema. NEUROLOGIC: Strength of the lower extremities is 4/5. IMPRESSION: The patient has history of hypertension and as the nurse has observed that the blood pressure was in the high side in the 150 to 160 systolic. PLAN: The amlodipine was at 5 mg, we are going to increase it to 10 mg, and we should keep the blood pressure at 130/84. We are going to continue physical therapy and possible discharge over the weekend. The case was discussed with the resident nurse. Blas Swanson MD
[2019-01-09] MEDS: Cholecalciferol 1,000 INTLU TAB PO SCH (09:17)
[2019-01-09] MEDS: HCTZ/Losartan 12.5/50 Tab PO SCH (09:18)
[2019-01-09] MEDS: Pantoprazole 40 mg EC Tab PO SCH (09:19)
--- NOTE | 2019-01-09 22:15 | PN ---
DATE: 01/09/2019 SUBJECTIVE: The patient was seen today, sitting in bed. Alert and awake, oriented. Denied any chest pain or shortness of breath. The patient denied any palpitations. No constipation. The patient is also complaining of less weakness of the lower extremities. PHYSICAL EXAMINATION: VITAL SIGNS: Blood pressure 116/77, pulse 64, respirations 20, temperature 97.9. NECK: Supple. LUNGS: Clear. HEART: Regular rate and rhythm. ABDOMEN: Soft, nontender. EXTREMITIES: There is no edema. NEUROLOGIC: The patient has muscle strength of 4/5 of the lower extremities. So the patient has physical therapy. LABORATORY DATA: Last labs on 01/08/2019 showed hemoglobin of 11.7, hematocrit 35.6, and platelets 180. Chemistry has shown sodium of 129, potassium of 4.7, chloride 102, bicarb 29, BUN 25, creatinine 1.5. ASSESSMENT AND PLAN: So the plan is that we are going to continue with the physical therapy today. The patient has possibility of discharge in the morning. The case was discussed with the nurse in the floor. So we are going to continue at this time now the . We have to hold the [facility] for now. Blas Swanson MD
[2019-01-10 07:39] LABS: BASO % 0.6 % (0.0-2.0); EOS # 0.4 K/uL (0.0-0.7); EOS % 5.8 % (0.0-4.0); HEMOGLOBIN 11.8 g/dL (12.0-16.0); LYMPH # 2.3 K/uL (1.0-4.3); MEAN CELL VOLUME 93.8 fl (81.0-99.0); MEAN CORPUSCULAR HEMOGLOBIN 30.8 pg (27.0-31.0); MEAN CORPUSCULAR HGB CONC 32.8 g/dL (33.0-37.0); MEAN PLATELET VOLUME 10.6 fl (7.2-11.7); MONO # 0.7 K/uL (0.0-0.8); MONO % 9.7 % (0.0-10.0); NEUT # 3.7 K/uL (1.8-7.0); NEUT % 51.9 % (50.0-75.0); NRBC % 0.1 % (0.0-0.0); RBC 3.82 Mil/uL (3.80-5.20); RED CELL DISTRIBUTION WIDTH 14.4 % (11.5-14.5); WHITE BLOOD COUNT 7.1 K/uL (4.8-10.8)
[2019-01-10 08:02] LABS: ALB/GLOB RATIO 1.1 (1.0-2.1); CALCIUM 9.6 mg/dL (8.4-10.2)
[2019-01-10] MEDS: Pantoprazole 40 mg EC Tab PO SCH (08:47)
[2019-01-10] MEDS: Cholecalciferol 1,000 INTLU TAB PO SCH (08:49)
[2019-01-10] MEDS: HCTZ/Losartan 12.5/50 Tab PO SCH (08:49)
[2019-01-10 08:50] VITALS: BP 151/75; PULSE 60
[2019-01-10 09:34] VITALS: RESP 18; TEMP 97.3; O2SAT 98
[2019-01-10] MEDS ORDERED: Sod Polystyrene Sulf 15 gm/60 ml Susp PO ONE (10:30)
--- NOTE | 2019-01-12 21:07 | CP.PCM.PN ---
Subjective - Date & Time of Evaluation Date of Evaluation: 01/09/19 Time of Evaluation: 09:10 - Subjective Subjective: no acute complaints at present Objective - Vital Signs/Intake and Output Vital Signs (last 24 hours): Temp Pulse Resp BP Pulse Ox 97.3 F L 60 18 151/75 H 98 01/10/19 09:34 01/10/19 09:34 01/10/19 09:34 01/10/19 09:34 01/10/19 09:34 - Labs Labs: 01/10/19 06:00 01/10/19 06:00 - Constitutional Appears: Well - Head Exam Head Exam: ATRAUMATIC, NORMAL INSPECTION, NORMOCEPHALIC - Eye Exam Eye Exam: EOMI, Normal appearance Pupil Exam: NORMAL ACCOMODATION, PERRL - ENT Exam ENT Exam: Mucous Membranes Moist, Normal Exam - Neck Exam Neck Exam: Full ROM, Normal Inspection - Respiratory Exam Respiratory Exam: Clear to Ausculation Bilateral, NORMAL BREATHING PATTERN - Cardiovascular Exam Cardiovascular Exam: REGULAR RHYTHM - GI/Abdominal Exam GI & Abdominal Exam: Soft, Normal Bowel Sounds - Rectal Exam Rectal Exam: NORMAL INSPECTION - Exam External exam: NORMAL EXTERNAL EXAM - Extremities Exam Extremities Exam: Full ROM, Normal Capillary Refill - Back Exam Back Exam: NORMAL INSPECTION - Neurological Exam Neurological Exam: Alert Neuro motor strength exam: Left Upper Extremity: 3, Right Upper Extremity: 3, Left Lower Extremity: 3, Right Lower Extremity: 3 - Psychiatric Exam Psychiatric exam: Normal Affect - Skin Skin Exam: Normal Color Assessment and Plan (1) Ischemic stroke Assessment & Plan: covering for Dr marina, plan for discharge and follow up with PMD continue with present program Status: Acute (2) Renal insufficiency Status: Acute
== END 2019-01-10 15:40 | disposition home health service (06) | DRG 12 ==
PROVIDERS: ADMIT Specialist; ATTEND Specialist
PROC: F07Z9FZ Gait Training/Functional Ambulation Treatment using Assistive, Adaptive, Supportive or Protective Equipment (ICD-10-PCS; principal; 2018-12-25)
PROC: F08Z4FZ Home Management Treatment using Assistive, Adaptive, Supportive or Protective Equipment (ICD-10-PCS; 2018-12-25)
PROC: F07L6FZ Therapeutic Exercise Treatment of Musculoskeletal System - Lower Back / Lower Extremity using Assistive, Adaptive, Supportive or Protective Equipment (ICD-10-PCS; 2018-12-25)
DX: I69.351 Hemiplegia and hemiparesis following cerebral infarction affecting right dominant side (principal); D69.6 Thrombocytopenia, unspecified; N18.2 Chronic kidney disease, stage 2 (mild); E11.22 Type 2 diabetes mellitus with diabetic chronic kidney disease; I69.354 Hemiplegia and hemiparesis following cerebral infarction affecting left non-dominant side; I12.9 Hypertensive chronic kidney disease with stage 1 through stage 4 chronic kidney disease, or unspecified chronic kidney disease; R26.2 Difficulty in walking, not elsewhere classified; M48.061 Spinal stenosis, lumbar region without neurogenic claudication; Z79.02 Long term (current) use of antithrombotics/antiplatelets; Z79.82 Long term (current) use of aspirin; Z79.84 Long term (current) use of oral hypoglycemic drugs